=== PATIENT | female | born 1940 | race African-American/Black ===

== ENCOUNTER 2017-04-01 13:03 | Inpatient (IN) | payer MEDICARE, MEDICAID ==
[~2017-04-01] VITALS: Ht 165.1 cm; Wt 73.5 kg
[~2017-04-01 13:03] MED LIST: ACET1TAB14 PO; AMLO10TA80 PO; CALC667C4 PO; DIPH25CA83 PO; METO-300 PO; OMEGA; OMEP20CA10 PO; PRED5DRO7 RIGHTEYE; PRORENAL; SEVE800T8 PO; [UNRECOGNIZED DRUG - OTHER] RIGHTEYE
[2017-04-01] MEDS ORDERED: ONDANSETRON HCL 4MG/2ML VIAL IV STA (13:38)
[2017-04-01] MEDS ORDERED: MORPHINE SULFATE 4 MG/ML CPJ (NOT FOR IM USE) IV STA (13:38)
[2017-04-01 14:03] LABS: BASOPHILS % 0.4 % (0.0-2.0); EOSINOPHILS % 1.2 % (0.0-5.0); HEMATOCRIT. 21.9 % (36.0-48.0); HEMOGLOBIN. 7.3 g/dL (12.0-16.0); LYMPHOCYTES % 26.7 % (20.0-50.0); MEAN CORPUSCULAR HEMOGLOBIN 33.9 pg (28.0-32.0); MEAN CORPUSCULAR VOLUME 101.9 fL (81.0-99.0); MEAN PLATELET VOLUME 9.1 fl (7.4-10.4); MONOCYTES % 13.9 % (2.0-8.0); NEUTROPHILS % 57.8 % (40.0-76.0); PLATELET 156 x1000/uL (130-400); RED BLOOD CELL COUNT 2.15 mill/uL (4.2-5.4); RED CELL DISTRIBUTION WIDTH 15.4 % (11.6-14.6)
[2017-04-01 14:09] LABS: INR 1.1; PROTHROMBIN TIME 11.9 sec
[2017-04-01 14:10] LABS: CARBON DIOXIDE 37 mEq/L (21-32); CHLORIDE 101 mEq/L (98-107)
[2017-04-01] MEDS ORDERED: DIPHENHYDRAMINE 50MG/ML VIAL IV ONE (16:00)
[2017-04-01] MEDS ORDERED: LEVOFLOXACIN 750MG PREMIX 150 ML IV ONE (16:00)
[2017-04-01] MEDS: METOPROLOL TARTRATE 50MG TABLET PO SCH (17:13)
[2017-04-01] MEDS ORDERED: ALBUTEROL (0.083%) 2.5MG/3ML NEB HHN NR (18:30)
[2017-04-01] MEDS ORDERED: CEFEPIME 1,000 MG in DEXTROSE 5% WATER 50 ML IV SCH (18:30)
[2017-04-01] MEDS ORDERED: MAGNESIUM/ALUMINUM HYDROXIDE/SIMETHICONE 30ML UDC PO PRN (19:00)
[2017-04-01] MEDS ORDERED: IPRATROPIUM/ALBUTEROL 0.5-3(2.5)MG/3ML NEB INH PRN (19:00)
[2017-04-01] MEDS ORDERED: DOCUSATE SODIUM 100MG CAPSULE PO PRN (19:00)
[2017-04-01] MEDS ORDERED: GUAIFENESIN 200MG/10ML SUGAR FREE UDC PO PRN (19:00)
[2017-04-01] MEDS ORDERED: ACETAMINOPHEN 325MG TABLET PO PRN (19:00)
[2017-04-01 19:01] LABS: AMYLASE 159 IU/L (25-115)
[2017-04-01] MEDS ORDERED: NA PHOS,M-B/NA PHOS,DI-BA ENEMA 118ML PR PRN (20:00)
[2017-04-01] MEDS ORDERED: AMLODIPINE 5MG TABLET PO SCH (21:00)
[2017-04-01 22:55] LABS: TROPONIN I 0.1 ng/mL (0.00-0.04)
[2017-04-02] VITALS (46 sets, daily range): BP systolic 92–163; BP diastolic 42–88
[2017-04-02] MEDS: HYDROCODONE/ACETAMINOPHEN 5/325MG TABLET PO PRN (01:18)
[2017-04-02] MEDS: ONDANSETRON HCL 4MG/2ML VIAL IV PRN ×2 (03:34→13:23)
[2017-04-02] MEDS ORDERED: WATER IV SCH (04:00)
[2017-04-02] MEDS ORDERED: DEXTROSE 5% IV SCH (04:00)
[2017-04-02] MEDS ORDERED: CEFEPIME IV SCH (04:00)
[2017-04-02] MEDS: METOPROLOL TARTRATE 50MG TABLET PO SCH (08:15)
[2017-04-02] MEDS ORDERED: AMLODIPINE 5MG TABLET PO SCH (09:00)
[2017-04-02] MEDS ORDERED: PANTOPRAZOLE 40MG DR TABLET PO SCH (09:00)
[2017-04-02] MEDS ORDERED: DEXTROSE 50% WATER 50ML SYRINGE IV ONE ×2 (09:38→13:08)
[2017-04-02] MEDS ORDERED: DOPAMINE 400MG PREMIX 250 ML IV PRN (09:45)
[2017-04-02] MEDS ORDERED: SODIUM CHLORIDE 0.9% 250 ML IV NR (09:45)
[2017-04-02] MEDS ORDERED: ATROPINE SULFATE 1MG/10ML SYR IV PRN (09:45)
[2017-04-02] MEDS ORDERED: DOPAMINE IV ONE (09:55)
[2017-04-02 10:02] LABS: BG BASE EXCESS -11.3 mmol/L (-2.0-2.0); BG CARBOXYHEMOGLOBIN 0.3 % (0.5-1.5); BG DEOXYHEMOGLOBIN 1.8 % (0.0-5.0); BG HCO3 ACT 14.6 mmol/L (22.0-26.0); BG METHEMOGLOBIN 0.2 % (0.0-1.5); BG OXYGEN SATURATION 98.2 % (92.0-98.5); BG OXYHEMOGLOBIN 97.7 % (94.0-97.0); BG PCO2 32.8 mmHg (35.0-45.0); BG PH 7.267 (7.350-7.450); BG PO2 145.2 mmHg (75.0-100.0); BG SAMPLE SITE RIGHT BRACHIAL; BG TOTAL HEMOGLOBIN 8.7 g/dL (12.0-18.0); BG VENT MODE NASAL CANNULA
[2017-04-02] MEDS ORDERED: SODIUM BICARBONATE 8.4% 1 MEQ/ML 50ML SYR IV SCH (10:15)
[2017-04-02] MEDS: DEXT 5%/0.45% NACL 1000ML 1,000 ML IV SCH ×2 (10:18→20:28)
[2017-04-02] MEDS ORDERED: PANTOPRAZOLE SODIUM 40 MG/VIAL IV SCH (10:30)
[2017-04-02 10:34] LABS: CARBON DIOXIDE 19 mEq/L (21-32); CHLORIDE 101 mEq/L (98-107)
[2017-04-02 10:35] LABS: CREATINE KINASE MB FRACTION 4.3 ng/mL (0.5-3.6); LDL CHOLESTEROL 30 mg/dL (5-100)
[2017-04-02 10:40] LABS: CREATINE KINASE 151 IU/L (26-192); HDL CHOLESTEROL 53 mg/dL (40-59)
[2017-04-02 11:12] LABS: AMMONIA 91 uMol/L (<32)
[2017-04-02 11:12] LABS: HEMATOCRIT. 25.3 % (36.0-48.0); HEMOGLOBIN. 7.6 g/dL (12.0-16.0); MEAN CORPUSCULAR HEMOGLOBIN 34.4 pg (28.0-32.0); PLATELET 188 x1000/uL (130-400); RED CELL DISTRIBUTION WIDTH 17.2 % (11.6-14.6)
[2017-04-02 11:13] LABS: MEAN CORPUSCULAR VOLUME 114.7 fL (81.0-99.0)
[2017-04-02 11:52] LABS: NUCLEATED RED BLOOD CELLS 4 /100 WBC
[2017-04-02 11:53] LABS: PLATELET ESTIMATE NORMAL
[2017-04-02] MEDS ORDERED: MORPHINE SULFATE 2 MG/ML CPJ (NOT FOR IM USE) ONE (14:52)
[2017-04-02] MEDS: MORPHINE SULFATE 2 MG/ML CPJ (NOT FOR IM USE) IV PRN (14:56)
[2017-04-02] MEDS: PIPERACILLIN/TAZOBACTAM 2.25 G in DEXTROSE 5% WATER 50 ML IV SCH ×2 (15:03→21:05)
[2017-04-02 15:35] LABS: BG BASE EXCESS 5.5 mmol/L (-2.0-2.0); BG CARBOXYHEMOGLOBIN 0.2 % (0.5-1.5); BG DEOXYHEMOGLOBIN 1.7 % (0.0-5.0); BG HCO3 ACT 30.3 mmol/L (22.0-26.0); BG METHEMOGLOBIN 0.2 % (0.0-1.5); BG OXYGEN SATURATION 98.3 % (92.0-98.5); BG OXYHEMOGLOBIN 97.9 % (94.0-97.0); BG PCO2 45.2 mmHg (35.0-45.0); BG PH 7.444 (7.350-7.450); BG PO2 130.1 mmHg (75.0-100.0); BG SAMPLE SITE RIGHT BRACHIAL; BG TOTAL HEMOGLOBIN 11.9 g/dL (12.0-18.0); BG VENT MODE NASAL CANNULA
[2017-04-02 16:07] LABS: HEMATOCRIT 31.4 % (36.0-48.0); HEMOGLOBIN 10.2 g/dL (12.0-16.0)
[2017-04-02] MEDS: HYDROMORPHONE HCL/PF 2MG/ML CPJ IV PRN ×2 (18:21→21:06)
[2017-04-02] MEDS: PANTOPRAZOLE SODIUM 40 MG/VIAL IV SCH (20:28)
[2017-04-02 21:56] LABS: HEMOGLOBIN 11.2 g/dL (12.0-16.0)
[2017-04-03] VITALS (42 sets, daily range): BP systolic 35–157; BP diastolic 17–102
[2017-04-03] MEDS: DEXT 5%/0.45% NACL 1000ML 1,000 ML IV SCH (05:07)
[2017-04-03] MEDS: PIPERACILLIN/TAZOBACTAM 2.25 G in DEXTROSE 5% WATER 50 ML IV SCH ×2 (05:07→22:17)
[2017-04-03 06:02] LABS: BASOPHILS % 0.3 % (0.0-2.0); EOSINOPHILS % 0.5 % (0.0-5.0); HEMATOCRIT. 29.4 % (36.0-48.0); HEMOGLOBIN. 9.9 g/dL (12.0-16.0); LYMPHOCYTES % 18.1 % (20.0-50.0); MEAN CORPUSCULAR HEMOGLOBIN 34.2 pg (28.0-32.0); MEAN PLATELET VOLUME 9.6 fl (7.4-10.4); MONOCYTES % 8.7 % (2.0-8.0); NEUTROPHILS % 72.4 % (40.0-76.0); PLATELET 120 x1000/uL (130-400); RED BLOOD CELL COUNT 2.88 mill/uL (4.2-5.4); RED CELL DISTRIBUTION WIDTH 15.5 % (11.6-14.6)
[2017-04-03] MEDS: HYDROMORPHONE HCL/PF 2MG/ML CPJ IV PRN ×3 (06:19→22:23)
[2017-04-03] MEDS: PANTOPRAZOLE SODIUM 40 MG/VIAL IV SCH ×2 (08:07→21:30)
[2017-04-03] MEDS: ATROPINE SULFATE RIGHTEYE SCH ×2 (10:25→21:31)
[2017-04-03] MEDS ORDERED: MIDAZOLAM HCL 5 MG/5 ML VIAL ONE (10:34)
[2017-04-03] MEDS ORDERED: SIMETHICONE 40 MG/0.6 ML 30ML ONE (10:34)
[2017-04-03] MEDS ORDERED: FENTANYL CITRATE/PF 50MCG/ML 2ML VIAL ONE (10:34)
[2017-04-03] MEDS ORDERED: MIDAZOLAM HCL 2 MG/2 ML VIAL IV PRN (11:38)
[2017-04-03] MEDS ORDERED: FENTANYL CITRATE/PF 50MCG/ML 2ML VIAL IV PRN (11:38)
[2017-04-03] MEDS: PREDNISOLONE ACETATE 0.12% RIGHTEYE SCH ×2 (12:00→17:35)
[2017-04-03] MEDS ORDERED: SODIUM CHLORIDE 0.9% 10ML VIAL ONE (13:48)
[2017-04-03] MEDS: LACTULOSE 20G/30ML UDC PO SCH (17:35)
[2017-04-03 17:51] LABS: HEMOGLOBIN 10.6 g/dL (12.0-16.0)
[2017-04-04] VITALS (28 sets, daily range): BP systolic 100–176; BP diastolic 68–107
[2017-04-04] MEDS: PREDNISOLONE ACETATE 0.12% RIGHTEYE SCH ×2 (00:42→06:00)
[2017-04-04] MEDS: PIPERACILLIN/TAZOBACTAM 2.25 G in DEXTROSE 5% WATER 50 ML IV SCH ×2 (05:33→14:08)
[2017-04-04 06:33] LABS: AMMONIA 51 uMol/L (<32)
[2017-04-04 07:04] LABS: BASOPHILS % 0.4 % (0.0-2.0); EOSINOPHILS % 1.3 % (0.0-5.0); HEMATOCRIT. 29.8 % (36.0-48.0); HEMOGLOBIN. 10.1 g/dL (12.0-16.0); LYMPHOCYTES % 21.8 % (20.0-50.0); MEAN CORPUSCULAR HEMOGLOBIN 34.6 pg (28.0-32.0); MEAN CORPUSCULAR VOLUME 102.5 fL (81.0-99.0); MEAN PLATELET VOLUME 9.5 fl (7.4-10.4); MONOCYTES % 13.1 % (2.0-8.0); NEUTROPHILS % 63.4 % (40.0-76.0); PLATELET 123 x1000/uL (130-400); RED BLOOD CELL COUNT 2.91 mill/uL (4.2-5.4); RED CELL DISTRIBUTION WIDTH 16.1 % (11.6-14.6)
[2017-04-04] MEDS: PANTOPRAZOLE SODIUM 40 MG/VIAL IV SCH ×2 (08:22→21:13)
[2017-04-04] MEDS: HYDROCODONE/ACETAMINOPHEN 5/325MG TABLET PO PRN (08:22)
[2017-04-04] MEDS: LACTULOSE 20G/30ML UDC PO SCH ×2 (08:22→17:14)
[2017-04-04] MEDS: ATROPINE SULFATE RIGHTEYE SCH ×2 (08:28→21:13)
[2017-04-04] MEDS: AMLODIPINE 10MG TABLET PO SCH (12:19)
[2017-04-04] MEDS: HYDROMORPHONE HCL/PF 2MG/ML CPJ IV PRN ×2 (12:20→21:14)
[2017-04-04] MEDS: PREDNISOLONE ACETATE 1% OPHTH DROPS 1ML RIGHTEYE SCH (17:54)
[2017-04-04] MEDS: PIPERACILLIN/TAZ 2.25G PREMIX 50 ML IV SCH (21:14)
[2017-04-05] VITALS (14 sets, daily range): BP systolic 113–181; BP diastolic 68–97
[2017-04-05] MEDS: PREDNISOLONE ACETATE 1% OPHTH DROPS 1ML RIGHTEYE SCH ×5 (00:09→23:20)
[2017-04-05] MEDS: DIPHENHYDRAMINE 50MG/ML VIAL IV PRN (00:10)
[2017-04-05] MEDS: CLONIDINE 0.1MG TABLET PO PRN ×2 (00:10→08:21)
[2017-04-05] MEDS: HYDROCODONE/ACETAMINOPHEN 5/325MG TABLET PO PRN (00:11)
[2017-04-05] MEDS: MORPHINE SULFATE 2 MG/ML CPJ (NOT FOR IM USE) IV PRN ×2 (03:11→23:20)
[2017-04-05] MEDS: LORAZEPAM 2MG/ML CPJ IV PRN ×2 (03:17→23:18)
[2017-04-05 03:26] LABS: BASOPHILS % 0.1 % (0.0-2.0); EOSINOPHILS % 2.3 % (0.0-5.0); HEMATOCRIT. 29.1 % (36.0-48.0); HEMOGLOBIN. 9.7 g/dL (12.0-16.0); MEAN CORPUSCULAR HEMOGLOBIN 34.2 pg (28.0-32.0); MEAN CORPUSCULAR VOLUME 102.2 fL (81.0-99.0); MEAN PLATELET VOLUME 9.3 fl (7.4-10.4); MONOCYTES % 8.3 % (2.0-8.0); NEUTROPHILS % 66.3 % (40.0-76.0); PLATELET 125 x1000/uL (130-400); RED BLOOD CELL COUNT 2.85 mill/uL (4.2-5.4)
[2017-04-05 03:35] LABS: PHOSPHORUS 4.8 mg/dL (2.5-4.9)
[2017-04-05] MEDS: PIPERACILLIN/TAZ 2.25G PREMIX 50 ML IV SCH (05:49)
[2017-04-05] MEDS: PANTOPRAZOLE SODIUM 40 MG/VIAL IV SCH ×2 (08:21→22:08)
[2017-04-05] MEDS: AMLODIPINE 10MG TABLET PO SCH (08:21)
[2017-04-05] MEDS: ATROPINE SULFATE RIGHTEYE SCH ×2 (08:22→22:10)
[2017-04-05] MEDS: LACTULOSE 20G/30ML UDC PO SCH ×2 (08:22→17:17)
[2017-04-05] MEDS: PIPERACILLIN/TAZOBACTAM 2.25 G in DEXTROSE 5% WATER 50 ML IV SCH (17:17)
[2017-04-06] VITALS (12 sets, daily range): BP systolic 100–165; BP diastolic 23–107
[2017-04-06] MEDS: PIPERACILLIN/TAZOBACTAM 2.25 G in DEXTROSE 5% WATER 50 ML IV SCH ×2 (01:31→10:21)
[2017-04-06] MEDS: HYDROCODONE/ACETAMINOPHEN 5/325MG TABLET PO PRN ×2 (03:00→08:29)
[2017-04-06] MEDS: CLONIDINE 0.1MG TABLET PO PRN (03:01)
[2017-04-06] MEDS: DIPHENHYDRAMINE 50MG/ML VIAL IV PRN ×2 (03:14→23:38)
[2017-04-06] MEDS: PREDNISOLONE ACETATE 1% OPHTH DROPS 1ML RIGHTEYE SCH ×4 (06:19→23:33)
[2017-04-06 07:13] LABS: BASOPHILS % 0.4 % (0.0-2.0); EOSINOPHILS % 3.7 % (0.0-5.0); HEMATOCRIT. 28.5 % (36.0-48.0); HEMOGLOBIN. 9.7 g/dL (12.0-16.0); LYMPHOCYTES % 25.5 % (20.0-50.0); MEAN CORPUSCULAR HEMOGLOBIN 34.8 pg (28.0-32.0); MEAN CORPUSCULAR VOLUME 102.6 fL (81.0-99.0); MONOCYTES % 14.1 % (2.0-8.0); NEUTROPHILS % 56.3 % (40.0-76.0); PLATELET 103 x1000/uL (130-400); RED BLOOD CELL COUNT 2.78 mill/uL (4.2-5.4); RED CELL DISTRIBUTION WIDTH 17.4 % (11.6-14.6)
[2017-04-06] MEDS: ATROPINE SULFATE RIGHTEYE SCH ×2 (08:30→21:03)
[2017-04-06] MEDS: LACTULOSE 20G/30ML UDC PO SCH ×2 (08:30→16:40)
[2017-04-06] MEDS: AMLODIPINE 10MG TABLET PO SCH (08:30)
[2017-04-06] MEDS: PANTOPRAZOLE SODIUM 40 MG/VIAL IV SCH ×2 (08:30→21:04)
[2017-04-06 11:21] LABS: AMMONIA 28 uMol/L (<32)
[2017-04-06 11:24] LABS: BG BASE EXCESS 1.5 mmol/L (-2.0-2.0); BG DEOXYHEMOGLOBIN 7.7 % (0.0-5.0); BG FRACTION INSPIRED OXYGEN 21; BG HCO3 ACT 27.1 mmol/L (22.0-26.0); BG METHEMOGLOBIN 0.3 % (0.0-1.5); BG OXYGEN SATURATION 92.2 % (92.0-98.5); BG PCO2 47.1 mmHg (35.0-45.0); BG PH 7.378 (7.350-7.450); BG PO2 68.8 mmHg (75.0-100.0); BG SAMPLE SITE RIGHT RADIAL; BG TOTAL HEMOGLOBIN 10.5 g/dL (12.0-18.0); BG VENT MODE ROOM AIR
[2017-04-06] MEDS: LORAZEPAM 2MG/ML CPJ IV PRN (12:21)
[2017-04-06] MEDS: HYDROCODONE/ACETAMINOPHEN 10/325MG TABLET PO PRN ×2 (12:22→21:03)
[2017-04-07] VITALS (11 sets, daily range): BP systolic 137–160; BP diastolic 59–99
[2017-04-07] MEDS: BUDESONIDE 0.5MG/2ML NEB HHN SCH ×2 (00:19→12:32)
[2017-04-07] MEDS: PREDNISOLONE ACETATE 1% OPHTH DROPS 1ML RIGHTEYE SCH ×4 (05:35→23:16)
[2017-04-07 06:47] LABS: BASOPHILS % 0.4 % (0.0-2.0); EOSINOPHILS % 5.7 % (0.0-5.0); HEMATOCRIT. 29.1 % (36.0-48.0); HEMOGLOBIN. 9.9 g/dL (12.0-16.0); LYMPHOCYTES % 22.3 % (20.0-50.0); MEAN CORPUSCULAR HEMOGLOBIN 34.5 pg (28.0-32.0); MEAN CORPUSCULAR VOLUME 101.9 fL (81.0-99.0); MEAN PLATELET VOLUME 9.8 fl (7.4-10.4); MONOCYTES % 11.5 % (2.0-8.0); NEUTROPHILS % 60.1 % (40.0-76.0); PLATELET 97 x1000/uL (130-400); RED BLOOD CELL COUNT 2.86 mill/uL (4.2-5.4); RED CELL DISTRIBUTION WIDTH 18.3 % (11.6-14.6)
[2017-04-07] MEDS: LACTULOSE 20G/30ML UDC PO SCH ×2 (08:08→17:00)
[2017-04-07] MEDS: AMLODIPINE 10MG TABLET PO SCH (08:16)
[2017-04-07] MEDS: HYDROCODONE/ACETAMINOPHEN 10/325MG TABLET PO PRN ×3 (08:16→22:49)
[2017-04-07] MEDS: PANTOPRAZOLE SODIUM 40 MG/VIAL IV SCH ×2 (08:16→20:11)
[2017-04-07] MEDS: ATROPINE SULFATE RIGHTEYE SCH ×2 (08:17→20:11)
[2017-04-07] MEDS ORDERED: LORAZEPAM 2MG/ML CPJ IV PRN (15:45)
[2017-04-07] MEDS: CLONIDINE 0.1MG TABLET PO PRN (18:02)
[2017-04-08] VITALS (7 sets, daily range): BP systolic 147–176; BP diastolic 69–87
[2017-04-08] MEDS: BUDESONIDE 0.5MG/2ML NEB HHN SCH ×2 (00:29→11:26)
[2017-04-08] MEDS: CLONIDINE 0.1MG TABLET PO PRN (01:03)
[2017-04-08] MEDS: HYDROCODONE/ACETAMINOPHEN 10/325MG TABLET PO PRN ×2 (05:27→13:56)
[2017-04-08] MEDS: PREDNISOLONE ACETATE 1% OPHTH DROPS 1ML RIGHTEYE SCH ×2 (06:01→11:54)
[2017-04-08] MEDS: AMLODIPINE 10MG TABLET PO SCH (08:46)
[2017-04-08] MEDS: ATROPINE SULFATE RIGHTEYE SCH (08:46)
[2017-04-08] MEDS: LACTULOSE 20G/30ML UDC PO SCH (08:46)
[2017-04-08] MEDS: PANTOPRAZOLE SODIUM 40 MG/VIAL IV SCH (08:46)
== END 2017-04-08 15:25 | disposition home health service (06) | DRG 871 ==
LOC: ER 14:12 → 6WST 16:20 → EDBEDREQSVC 16:21 → EDBEDREQTM 16:21 → EDBEDREQ 16:21 → CVICU 04-02 09:38 → 5EST 04-04 23:35 → 6WST 04-08 01:30
PROVIDERS: ADMIT Internal Medicine; ATTEND Internal Medicine
PROC: 5A1D60Z (ICD-10-PCS; 2017-04-02)
PROC: 30233N1 Transfusion of Nonautologous Red Blood Cells into Peripheral Vein, Percutaneous Approach (ICD-10-PCS; 2017-04-02)
PROC: 02HV33Z Insertion of Infusion Device into Superior Vena Cava, Percutaneous Approach (ICD-10-PCS; 2017-04-02)
PROC: B548ZZA Ultrasonography of Superior Vena Cava, Guidance (ICD-10-PCS; 2017-04-02)
PROC: 0DB68ZX Excision of Stomach, Via Natural or Artificial Opening Endoscopic, Diagnostic (ICD-10-PCS; principal; 2017-04-03 11:30)
DX: A41.9 Sepsis, unspecified organism (principal); G93.40 Encephalopathy, unspecified; J69.0 Pneumonitis due to inhalation of food and vomit; N18.6 End stage renal disease; J96.00 Acute respiratory failure, unspecified whether with hypoxia or hypercapnia; K85.90 Acute pancreatitis without necrosis or infection, unspecified; I13.2 Hypertensive heart and chronic kidney disease with heart failure and with stage 5 chronic kidney disease, or end stage renal disease; N17.9 Acute kidney failure, unspecified; R18.8 Other ascites; K92.2 Gastrointestinal hemorrhage, unspecified; I50.9 Heart failure, unspecified; B19.20 Unspecified viral hepatitis C without hepatic coma; D50.0 Iron deficiency anemia secondary to blood loss (chronic); E16.2 Hypoglycemia, unspecified; E78.5 Hyperlipidemia, unspecified; E87.5 Hyperkalemia; I25.10 Atherosclerotic heart disease of native coronary artery without angina pectoris; K20.9 Esophagitis, unspecified; K29.00 Acute gastritis without bleeding; K29.80 Duodenitis without bleeding; K44.9 Diaphragmatic hernia without obstruction or gangrene; K74.60 Unspecified cirrhosis of liver; Z79.899 Other long term (current) drug therapy; Z99.2 Dependence on renal dialysis; Z82.49 Family history of ischemic heart disease and other diseases of the circulatory system; Z86.73 Personal history of transient ischemic attack (TIA), and cerebral infarction without residual deficits; K80.20 Calculus of gallbladder without cholecystitis without obstruction
CPT/HCPCS: 36415; 36430; 36569; 36600; 71010; 74176; 76700; 76937; 80048; 80051; 80053; 80061; 80076; 82140; 82150; 82270; 82375; 82550; 82553; 82805; 82962; 83540; 83550; 83605; 83690; 83735; 84100; 84443; 84484; 85007; 85014; 85018; 85025; 85027; 85379; 85610; 86677; 86850; 86900; 86920; 87040; 88305; 93005; 93306; 93970; 94640; 96365; 96366; 96375; 97116; 97163; 97166; 97530; 99285; A4216; A6261; C1725; C9113; J0461; J0692; J1170; J1200; J1265; J1956; J2060; J2250; J2270; J2405; J2543; J3010; J3490; J7030; J7050; J7060; J7620; J7626; P9016

== ENCOUNTER 2017-05-06 14:08 | Inpatient (IN) | payer MEDICARE, MEDICAID ==
[~2017-05-06] VITALS: Ht 162.6 cm; Wt 68.0 kg
[~2017-05-06 14:08] MED LIST changes: -METO-300 PO
[2017-05-06] MEDS ORDERED: ONDANSETRON HCL 4MG/2ML VIAL IV STA (16:18)
[2017-05-06] MEDS ORDERED: MORPHINE SULFATE 4 MG/ML CPJ (NOT FOR IM USE) IV STA (16:18)
[2017-05-06] MEDS ORDERED: NITROGLYCERIN OINT 1GM/INCH UDPKT TD ONE (16:30)
[2017-05-06 17:24] LABS: HEMATOCRIT. 40.1 % (36.0-48.0); HEMOGLOBIN. 12.7 g/dL (12.0-16.0); MEAN CORPUSCULAR HEMOGLOBIN 33.4 pg (28.0-32.0); MEAN CORPUSCULAR VOLUME 105.4 fL (81.0-99.0); MEAN PLATELET VOLUME 10.1 fl (7.4-10.4); PLATELET 100 x1000/uL (130-400); RED CELL DISTRIBUTION WIDTH 19.1 % (11.6-14.6)
[2017-05-06 17:35] LABS: INR 1.1; PROTHROMBIN TIME 11.5 sec (9.4-11.6)
[2017-05-06 17:38] LABS: CARBON DIOXIDE 34 mEq/L (21-32); CHLORIDE 107 mEq/L (98-107)
[2017-05-06 17:53] LABS: PLATELET ESTIMATE DECREASED
[2017-05-06] MEDS ORDERED: ASPIRIN 325MG TABLET PO ONE (18:00)
[2017-05-06] MEDS ORDERED: ENOXAPARIN 80MG/0.8ML SYR SUBCUT ONE (18:00)
[2017-05-06] MEDS ORDERED: CLONIDINE 0.1MG TABLET PO PRN (18:30)
[2017-05-06] MEDS ORDERED: ACETAMINOPHEN 325MG TABLET PO PRN (20:00)
[2017-05-06] MEDS ORDERED: DOCUSATE SODIUM 100MG CAPSULE PO PRN (20:00)
[2017-05-06] MEDS ORDERED: IPRATROPIUM/ALBUTEROL 0.5-3(2.5)MG/3ML NEB INH PRN (20:00)
[2017-05-06 20:05] VITALS: BP 175/98
[2017-05-06 22:00] VITALS: BP 143/75
[2017-05-06] MEDS: MAGNESIUM/ALUMINUM HYDROXIDE/SIMETHICONE 30ML UDC PO PRN (22:03)
[2017-05-06] MEDS: LOSARTAN POTASSIUM 25 MG TABLET PO SCH (22:03)
[2017-05-06] MEDS: HYDRALAZINE HCL 50MG TABLET PO SCH (22:04)
[2017-05-06] MEDS: HYDROCODONE/ACETAMINOPHEN 5/325MG TABLET PO PRN (22:05)
[2017-05-06] MEDS: AMLODIPINE 5MG TABLET PO SCH (22:05)
[2017-05-06] MEDS: METOPROLOL TARTRATE 25MG TABLET PO SCH (22:06)
[2017-05-07] VITALS (12 sets, daily range): BP systolic 125–170; BP diastolic 62–91
[2017-05-07 00:31] LABS: CREATINE KINASE MB FRACTION 7.1 ng/mL (0.5-3.6)
[2017-05-07 00:41] LABS: TROPONIN I 3.1 ng/mL (0.00-0.04)
[2017-05-07] MEDS: HYDROCODONE/ACETAMINOPHEN 5/325MG TABLET PO PRN ×4 (04:53→23:53)
[2017-05-07 06:25] LABS: HEMATOCRIT. 37.1 % (36.0-48.0); HEMOGLOBIN. 11.8 g/dL (12.0-16.0); MEAN CORPUSCULAR HEMOGLOBIN 33.9 pg (28.0-32.0); MEAN CORPUSCULAR VOLUME 106.5 fL (81.0-99.0); MEAN PLATELET VOLUME 9.6 fl (7.4-10.4); PLATELET 86 x1000/uL (130-400); RED BLOOD CELL COUNT 3.48 mill/uL (4.2-5.4); RED CELL DISTRIBUTION WIDTH 19.3 % (11.6-14.6)
[2017-05-07] MEDS: OMEPRAZOLE 20MG CAPSULE EXTENDED RELEASE PO SCH (06:42)
[2017-05-07 07:03] LABS: CREATINE KINASE MB FRACTION 6.3 ng/mL (0.5-3.6)
[2017-05-07 07:50] LABS: TROPONIN I 2.2 ng/mL (0.00-0.04)
[2017-05-07] MEDS: SEVELAMER CARBONATE 800 MG TABLET PO SCH ×3 (08:07→16:00)
[2017-05-07] MEDS: HYDRALAZINE HCL 50MG TABLET PO SCH ×2 (08:07→21:27)
[2017-05-07] MEDS: CALCIUM ACETATE 667MG CAPSULE PO SCH ×3 (08:07→16:00)
[2017-05-07] MEDS: AMLODIPINE 5MG TABLET PO SCH ×2 (08:08→21:00)
[2017-05-07] MEDS: METOPROLOL TARTRATE 25MG TABLET PO SCH (08:08)
[2017-05-07] MEDS: LOSARTAN POTASSIUM 25 MG TABLET PO SCH ×2 (08:08→21:00)
[2017-05-07] MEDS: ATROPINE SULFATE 1% OPHTH 2ML RIGHTEYE SCH ×2 (08:14→16:00)
[2017-05-07] MEDS: PREDNISOLONE ACETATE 1% OPHTH DROPS 1ML RIGHTEYE SCH ×4 (08:14→21:27)
[2017-05-07] MEDS ORDERED: DIPHENHYDRAMINE 25MG CAPSULE PO SCH (09:00)
[2017-05-07] MEDS ORDERED: SEVELAMER CARBONATE 800 MG TABLET PO SCH (09:00)
[2017-05-07] MEDS ORDERED: [UNRECOGNIZED DRUG - OTHER] RIGHTEYE SCH (09:00)
[2017-05-07] MEDS: FOLIC ACID/VITAMIN B COMP W-C TABLET PO SCH (12:06)
[2017-05-07 12:14] LABS: CLARITY URINE CLOUDY (CLEAR); COLOR URINE DARK YELLOW (YELLOW); GLUCOSE URINE NEGATIVE (NEGATIVE); KETONES URINE TRACE (NEGATIVE); LEUKOCYTE ESTERASE URINE TRACE (NEGATIVE); NITRITE URINE NEGATIVE (NEGATIVE); OCCULT BLOOD URINE TRACE (NEGATIVE); PH URINE 7.5 (4.5-8.0); PROTEIN URINE 4+ (NEGATIVE); SPECIFIC GRAVITY URINE 1.022 (1.005-1.030)
[2017-05-07 13:33] LABS: *AMPHETAMINES SCREEN URINE NEGATIVE (NEGATIVE); *BARBITURATES SCREEN URINE NEGATIVE (NEGATIVE); *BENZODIAZEPINES SCREEN URINE PRESUMTIVE POSITIVE (NEGATIVE); *COCAINE SCREEN URINE NEGATIVE (NEGATIVE); CANNABINOID URINE SCREEN NEGATIVE (NEGATIVE); METHADONE URINE SCREEN NEGATIVE (NEGATIVE); OPIATES URINE SCREEN PRESUMTIVE POSITIVE (NEGATIVE); PHENCYCLIDINE URINE SCREEN NEGATIVE (NEGATIVE)
[2017-05-07] MEDS: DIATR MEGLU/DIATRIZOATE SOLN 30ML PO SCH ×2 (15:57→17:11)
[2017-05-07 17:04] LABS: PLATELET ESTIMATE DECREASED
[2017-05-07] MEDS ORDERED: HEPARIN SODIUM 1,000 UNIT/1ML VIAL IV NR (21:15)
[2017-05-07] MEDS: CLONIDINE 0.1MG TABLET PO PRN (23:55)
[2017-05-08] VITALS (12 sets, daily range): BP systolic 98–165; BP diastolic 51–88
[2017-05-08 06:52] LABS: BASOPHILS % 0.4 % (0.0-2.0); EOSINOPHILS % 2.3 % (0.0-5.0); HEMATOCRIT. 37.4 % (36.0-48.0); HEMOGLOBIN. 11.9 g/dL (12.0-16.0); MEAN CORPUSCULAR HEMOGLOBIN 33.5 pg (28.0-32.0); MEAN CORPUSCULAR VOLUME 105.3 fL (81.0-99.0); MEAN PLATELET VOLUME 9.7 fl (7.4-10.4); MONOCYTES % 13.5 % (2.0-8.0); NEUTROPHILS % 48.8 % (40.0-76.0); PLATELET 89 x1000/uL (130-400); RED BLOOD CELL COUNT 3.55 mill/uL (4.2-5.4); RED CELL DISTRIBUTION WIDTH 18.7 % (11.6-14.6)
[2017-05-08] MEDS: OMEPRAZOLE 20MG CAPSULE EXTENDED RELEASE PO SCH (06:59)
[2017-05-08] MEDS: SEVELAMER CARBONATE 800 MG TABLET PO SCH ×3 (06:59→17:11)
[2017-05-08] MEDS: PREDNISOLONE ACETATE 1% OPHTH DROPS 1ML RIGHTEYE SCH ×4 (08:43→21:07)
[2017-05-08] MEDS: CALCIUM ACETATE 667MG CAPSULE PO SCH ×3 (08:44→17:11)
[2017-05-08] MEDS: ATROPINE SULFATE 1% OPHTH 2ML RIGHTEYE SCH ×2 (08:44→17:13)
[2017-05-08] MEDS: HYDRALAZINE HCL 50MG TABLET PO SCH ×2 (08:44→21:07)
[2017-05-08] MEDS: AMLODIPINE 5MG TABLET PO SCH ×2 (08:45→21:07)
[2017-05-08] MEDS: FOLIC ACID/VITAMIN B COMP W-C TABLET PO SCH (08:46)
[2017-05-08] MEDS: LOSARTAN POTASSIUM 25 MG TABLET PO SCH ×2 (08:46→21:07)
[2017-05-08] MEDS: HYDROCODONE/ACETAMINOPHEN 5/325MG TABLET PO PRN (10:48)
[2017-05-08] MEDS: LACTOBACILLUS GG CAPSULE PO SCH (12:48)
[2017-05-08] MEDS: METRONIDAZOLE 250MG TABLET PO SCH ×2 (13:03→21:07)
[2017-05-08] MEDS: ACETAMINOPHEN WITH CODEINE 300/60MG TABLET PO PRN ×2 (17:12→23:29)
[2017-05-09] VITALS (12 sets, daily range): BP systolic 106–164; BP diastolic 28–105
[2017-05-09] MEDS: CLONIDINE 0.1MG TABLET PO PRN (00:07)
[2017-05-09] MEDS: IPRATROPIUM/ALBUTEROL 0.5-3(2.5)MG/3ML NEB HHN SCH ×3 (02:30→14:42)
[2017-05-09] MEDS: MAGNESIUM/ALUMINUM HYDROXIDE/SIMETHICONE 30ML UDC PO PRN (05:55)
[2017-05-09] MEDS: SEVELAMER CARBONATE 800 MG TABLET PO SCH ×3 (05:55→16:50)
[2017-05-09] MEDS: METRONIDAZOLE 250MG TABLET PO SCH ×3 (05:55→21:30)
[2017-05-09] MEDS: ONDANSETRON HCL 4MG/2ML VIAL IV PRN (06:02)
[2017-05-09] MEDS: ATROPINE SULFATE 1% OPHTH 2ML RIGHTEYE SCH ×2 (08:50→18:41)
[2017-05-09] MEDS: FAMOTIDINE 20MG TABLET PO SCH (08:50)
[2017-05-09] MEDS: CALCIUM ACETATE 667MG CAPSULE PO SCH ×3 (08:50→17:00)
[2017-05-09] MEDS: LACTOBACILLUS GG CAPSULE PO SCH (08:50)
[2017-05-09] MEDS: FOLIC ACID/VITAMIN B COMP W-C TABLET PO SCH (08:50)
[2017-05-09] MEDS: PREDNISOLONE ACETATE 1% OPHTH DROPS 1ML RIGHTEYE SCH ×4 (08:50→21:31)
[2017-05-09] MEDS: HYDRALAZINE HCL 50MG TABLET PO SCH ×2 (08:51→21:30)
[2017-05-09] MEDS: ACETAMINOPHEN WITH CODEINE 300/60MG TABLET PO PRN ×3 (08:52→21:37)
[2017-05-09] MEDS: LOSARTAN POTASSIUM 25 MG TABLET PO SCH ×2 (08:53→21:30)
[2017-05-09] MEDS: AMLODIPINE 5MG TABLET PO SCH ×2 (08:53→21:30)
[2017-05-10] VITALS (17 sets, daily range): BP systolic 124–164; BP diastolic 58–91
[2017-05-10] MEDS: IPRATROPIUM/ALBUTEROL 0.5-3(2.5)MG/3ML NEB HHN SCH ×4 (02:03→20:59)
[2017-05-10] MEDS: SEVELAMER CARBONATE 800 MG TABLET PO SCH ×3 (06:34→16:53)
[2017-05-10] MEDS: METRONIDAZOLE 250MG TABLET PO SCH ×4 (06:34→23:41)
[2017-05-10 07:48] LABS: HEMOGLOBIN. 11.6 g/dL (12.0-16.0); MEAN CORPUSCULAR HEMOGLOBIN 33.6 pg (28.0-32.0); MEAN PLATELET VOLUME 10.5 fl (7.4-10.4); PLATELET 97 x1000/uL (130-400); RED BLOOD CELL COUNT 3.46 mill/uL (4.2-5.4); RED CELL DISTRIBUTION WIDTH 18.8 % (11.6-14.6)
[2017-05-10] MEDS: ATROPINE SULFATE 1% OPHTH 2ML RIGHTEYE SCH ×2 (08:18→16:53)
[2017-05-10] MEDS: PREDNISOLONE ACETATE 1% OPHTH DROPS 1ML RIGHTEYE SCH ×4 (08:18→21:14)
[2017-05-10] MEDS: CALCIUM ACETATE 667MG CAPSULE PO SCH ×3 (08:19→16:53)
[2017-05-10] MEDS: AMLODIPINE 5MG TABLET PO SCH ×2 (08:20→21:10)
[2017-05-10] MEDS: LACTOBACILLUS GG CAPSULE PO SCH (08:20)
[2017-05-10] MEDS: FAMOTIDINE 20MG TABLET PO SCH (08:20)
[2017-05-10] MEDS: FOLIC ACID/VITAMIN B COMP W-C TABLET PO SCH (08:20)
[2017-05-10] MEDS: HYDRALAZINE HCL 50MG TABLET PO SCH ×2 (08:21→21:10)
[2017-05-10] MEDS: LOSARTAN POTASSIUM 25 MG TABLET PO SCH ×2 (08:21→21:10)
[2017-05-10] MEDS: ACETAMINOPHEN WITH CODEINE 300/60MG TABLET PO PRN ×2 (08:26→20:01)
[2017-05-10] MEDS: MAGNESIUM/ALUMINUM HYDROXIDE/SIMETHICONE 30ML UDC PO PRN (08:59)
[2017-05-10] MEDS: ONDANSETRON HCL 4MG/2ML VIAL IV PRN ×2 (08:59→17:00)
[2017-05-10] MEDS: DICYCLOMINE HCL 10MG CAPSULE PO PRN ×2 (10:23→17:00)
[2017-05-10] MEDS ORDERED: PANTOPRAZOLE SODIUM 40 MG/VIAL IV SCH (14:15)
[2017-05-10 21:06] LABS: ATYPICAL LYMPHOCYTES 1; PLATELET ESTIMATE DECREASED
[2017-05-10] MEDS: DIPHENHYDRAMINE 25MG CAPSULE PO PRN (21:41)
[2017-05-10] MEDS: ZOLPIDEM TARTRATE 5MG TABLET PO PRN (23:41)
[2017-05-11] VITALS (14 sets, daily range): BP systolic 96–157; BP diastolic 40–117
[2017-05-11] MEDS: METRONIDAZOLE 250MG TABLET PO SCH ×4 (05:57→23:01)
[2017-05-11] MEDS: SEVELAMER CARBONATE 800 MG TABLET PO SCH ×3 (06:45→17:37)
[2017-05-11] MEDS: PREDNISOLONE ACETATE 1% OPHTH DROPS 1ML RIGHTEYE SCH ×4 (08:02→21:05)
[2017-05-11] MEDS: ATROPINE SULFATE 1% OPHTH 2ML RIGHTEYE SCH ×2 (08:02→17:35)
[2017-05-11 08:03] LABS: BASOPHILS % 0.5 % (0.0-2.0); EOSINOPHILS % 0.8 % (0.0-5.0); HEMATOCRIT. 41.8 % (36.0-48.0); HEMOGLOBIN. 13.2 g/dL (12.0-16.0); LYMPHOCYTES % 27.6 % (20.0-50.0); MEAN CORPUSCULAR HEMOGLOBIN 33.9 pg (28.0-32.0); MEAN CORPUSCULAR VOLUME 106.9 fL (81.0-99.0); MEAN PLATELET VOLUME 10.3 fl (7.4-10.4); MONOCYTES % 13.7 % (2.0-8.0); NEUTROPHILS % 57.4 % (40.0-76.0); PLATELET 131 x1000/uL (130-400); RED BLOOD CELL COUNT 3.91 mill/uL (4.2-5.4); RED CELL DISTRIBUTION WIDTH 18.8 % (11.6-14.6)
[2017-05-11] MEDS: LACTOBACILLUS GG CAPSULE PO SCH (08:03)
[2017-05-11] MEDS: FAMOTIDINE 20MG TABLET PO SCH (08:03)
[2017-05-11] MEDS: CALCIUM ACETATE 667MG CAPSULE PO SCH ×3 (08:03→17:38)
[2017-05-11] MEDS: FOLIC ACID/VITAMIN B COMP W-C TABLET PO SCH (08:03)
[2017-05-11] MEDS: ACETAMINOPHEN WITH CODEINE 300/60MG TABLET PO PRN ×2 (08:04→15:18)
[2017-05-11 08:25] LABS: PHOSPHORUS 3.2 mg/dL (2.5-4.9)
[2017-05-11] MEDS: AMLODIPINE 5MG TABLET PO SCH ×2 (09:00→21:05)
[2017-05-11] MEDS: LOSARTAN POTASSIUM 25 MG TABLET PO SCH ×2 (09:00→21:05)
[2017-05-11] MEDS: HYDRALAZINE HCL 50MG TABLET PO SCH ×2 (09:00→21:05)
[2017-05-11] MEDS: IPRATROPIUM/ALBUTEROL 0.5-3(2.5)MG/3ML NEB HHN SCH ×4 (09:47→20:55)
[2017-05-11] MEDS: DIPHENHYDRAMINE 25MG CAPSULE PO PRN ×2 (11:02→17:51)
[2017-05-11] MEDS: DICYCLOMINE HCL 10MG CAPSULE PO PRN (14:07)
[2017-05-11] MEDS: ZOLPIDEM TARTRATE 5MG TABLET PO PRN (23:01)
[2017-05-12] VITALS (12 sets, daily range): BP systolic 112–178; BP diastolic 60–92
[2017-05-12] MEDS: IPRATROPIUM/ALBUTEROL 0.5-3(2.5)MG/3ML NEB HHN SCH ×4 (01:55→20:00)
[2017-05-12] MEDS: METRONIDAZOLE 250MG TABLET PO SCH ×3 (05:42→18:17)
[2017-05-12] MEDS: SEVELAMER CARBONATE 800 MG TABLET PO SCH ×3 (05:42→18:17)
[2017-05-12 07:34] LABS: BASOPHILS % 0.5 % (0.0-2.0); HEMATOCRIT. 36.5 % (36.0-48.0); HEMOGLOBIN. 11.7 g/dL (12.0-16.0); LYMPHOCYTES % 22.4 % (20.0-50.0); MEAN CORPUSCULAR HEMOGLOBIN 33.5 pg (28.0-32.0); MEAN CORPUSCULAR VOLUME 104.9 fL (81.0-99.0); MEAN PLATELET VOLUME 10.4 fl (7.4-10.4); NEUTROPHILS % 64.1 % (40.0-76.0); PLATELET 99 x1000/uL (130-400); RED BLOOD CELL COUNT 3.48 mill/uL (4.2-5.4)
[2017-05-12] MEDS: CALCIUM ACETATE 667MG CAPSULE PO SCH ×3 (08:02→18:17)
[2017-05-12] MEDS: FOLIC ACID/VITAMIN B COMP W-C TABLET PO SCH (08:02)
[2017-05-12] MEDS: HYDRALAZINE HCL 50MG TABLET PO SCH ×2 (08:02→20:16)
[2017-05-12] MEDS: FAMOTIDINE 20MG TABLET PO SCH (08:02)
[2017-05-12] MEDS: LACTOBACILLUS GG CAPSULE PO SCH (08:02)
[2017-05-12] MEDS: LOSARTAN POTASSIUM 25 MG TABLET PO SCH ×2 (08:02→21:16)
[2017-05-12] MEDS: AMLODIPINE 5MG TABLET PO SCH ×2 (08:02→21:16)
[2017-05-12] MEDS: ATROPINE SULFATE 1% OPHTH 2ML RIGHTEYE SCH ×2 (08:07→18:17)
[2017-05-12] MEDS: PREDNISOLONE ACETATE 1% OPHTH DROPS 1ML RIGHTEYE SCH ×4 (08:07→20:18)
[2017-05-12] MEDS: ACETAMINOPHEN WITH CODEINE 300/60MG TABLET PO PRN ×2 (12:52→20:17)
[2017-05-12] MEDS: MORPHINE SULFATE 2 MG/ML CPJ (NOT FOR IM USE) IV PRN (14:10)
[2017-05-13] VITALS (14 sets, daily range): BP systolic 117–167; BP diastolic 30–87
[2017-05-13] MEDS: METRONIDAZOLE 250MG TABLET PO SCH ×4 (00:34→17:44)
[2017-05-13] MEDS: IPRATROPIUM/ALBUTEROL 0.5-3(2.5)MG/3ML NEB HHN SCH ×3 (01:22→20:35)
[2017-05-13] MEDS: SEVELAMER CARBONATE 800 MG TABLET PO SCH ×3 (06:36→17:40)
[2017-05-13 07:19] LABS: BASOPHILS % 0.4 % (0.0-2.0); HEMATOCRIT. 34.9 % (36.0-48.0); HEMOGLOBIN. 11.3 g/dL (12.0-16.0); MEAN CORPUSCULAR HEMOGLOBIN 33.7 pg (28.0-32.0); MEAN CORPUSCULAR VOLUME 104.4 fL (81.0-99.0); MEAN PLATELET VOLUME 10.1 fl (7.4-10.4); MONOCYTES % 12.1 % (2.0-8.0); NEUTROPHILS % 63.5 % (40.0-76.0); PLATELET 102 x1000/uL (130-400); RED BLOOD CELL COUNT 3.34 mill/uL (4.2-5.4); RED CELL DISTRIBUTION WIDTH 17.7 % (11.6-14.6)
[2017-05-13] MEDS: HYDRALAZINE HCL 50MG TABLET PO SCH ×2 (09:00→21:22)
[2017-05-13] MEDS: AMLODIPINE 5MG TABLET PO SCH ×2 (09:00→21:22)
[2017-05-13] MEDS: LOSARTAN POTASSIUM 25 MG TABLET PO SCH ×2 (09:00→21:22)
[2017-05-13] MEDS: LACTOBACILLUS GG CAPSULE PO SCH (09:12)
[2017-05-13] MEDS: CALCIUM ACETATE 667MG CAPSULE PO SCH ×3 (09:12→17:41)
[2017-05-13] MEDS: FOLIC ACID/VITAMIN B COMP W-C TABLET PO SCH (09:12)
[2017-05-13] MEDS: ATROPINE SULFATE 1% OPHTH 2ML RIGHTEYE SCH ×2 (09:12→17:41)
[2017-05-13] MEDS: FAMOTIDINE 20MG TABLET PO SCH (09:12)
[2017-05-13] MEDS: PREDNISOLONE ACETATE 1% OPHTH DROPS 1ML RIGHTEYE SCH ×4 (09:12→21:22)
[2017-05-13] MEDS: MORPHINE SULFATE 2 MG/ML CPJ (NOT FOR IM USE) IV PRN (15:04)
[2017-05-14] VITALS (8 sets, daily range): BP systolic 117–165; BP diastolic 55–78
[2017-05-14] MEDS: METRONIDAZOLE 250MG TABLET PO SCH ×3 (00:29→11:59)
[2017-05-14] MEDS: IPRATROPIUM/ALBUTEROL 0.5-3(2.5)MG/3ML NEB HHN SCH (01:29)
[2017-05-14] MEDS: SEVELAMER CARBONATE 800 MG TABLET PO SCH ×2 (06:48→11:50)
[2017-05-14] MEDS: LACTOBACILLUS GG CAPSULE PO SCH (08:25)
[2017-05-14] MEDS: ATROPINE SULFATE 1% OPHTH 2ML RIGHTEYE SCH (08:25)
[2017-05-14] MEDS: PREDNISOLONE ACETATE 1% OPHTH DROPS 1ML RIGHTEYE SCH (08:25)
[2017-05-14] MEDS: CALCIUM ACETATE 667MG CAPSULE PO SCH (08:26)
[2017-05-14] MEDS: FAMOTIDINE 20MG TABLET PO SCH (08:26)
[2017-05-14] MEDS: HYDRALAZINE HCL 50MG TABLET PO SCH (08:26)
[2017-05-14] MEDS: LOSARTAN POTASSIUM 25 MG TABLET PO SCH (08:26)
[2017-05-14] MEDS: FOLIC ACID/VITAMIN B COMP W-C TABLET PO SCH (08:26)
[2017-05-14] MEDS: AMLODIPINE 5MG TABLET PO SCH (08:26)
[2017-05-14] MEDS ORDERED: DICY10CA59 PO (08:32)
[2017-05-14] MEDS ORDERED: NEPVIT PO (08:32)
[2017-05-14] MEDS ORDERED: LOSA25TA3 PO (08:32)
[2017-05-14] MEDS ORDERED: LACTOBACILLUS RHAMNOSUS GG PO (08:32)
[2017-05-14] MEDS ORDERED: FAMO20TA8 PO (08:32)
[2017-05-14] MEDS ORDERED: HYDR-4135 PO (08:32)
[2017-05-14] MEDS ORDERED: CALC667C PO (08:32)
[2017-05-14] MEDS ORDERED: METR250T PO (08:32)
[2017-05-14] MEDS ORDERED: AMLO5TAB88 PO (08:32)
[2017-05-14] MEDS ORDERED: SEVE800T8 PO (08:32)
[2017-05-14 10:21] LABS: HEMATOCRIT 37.9 % (36.0-48.0); HEMOGLOBIN 12.2 g/dL (12.0-16.0); MEAN CORPUSCULAR HEMOGLOBIN 33.7 pg (28.0-32.0); MEAN CORPUSCULAR VOLUME 104.4 fL (81.0-99.0); PLATELET 114 x1000/uL (130-400); RED BLOOD CELL COUNT 3.63 mill/uL (4.2-5.4); RED CELL DISTRIBUTION WIDTH 17.9 % (11.6-14.6)
[2017-05-14 10:49] LABS: CARBON DIOXIDE 28 mEq/L (21-32); CHLORIDE 100 mEq/L (98-107)
== END 2017-05-14 12:40 | disposition home or self-care (01) | DRG 871 ==
LOC: ER 16:19 → EDBEDREQSVC 17:57 → EDBEDREQ 17:57 → EDBEDREQTM 17:57 → 3WST 17:57 → EDBEDREQ 18:22 → ENRESERV 18:46 → 3WST 05-11 17:05
PROVIDERS: ADMIT Internal Medicine; ATTEND Internal Medicine
PROC: 5A1D60Z (ICD-10-PCS; principal; 2017-05-07)
DX: A41.9 Sepsis, unspecified organism (principal); I21.4 Non-ST elevation (NSTEMI) myocardial infarction; J96.00 Acute respiratory failure, unspecified whether with hypoxia or hypercapnia; I13.2 Hypertensive heart and chronic kidney disease with heart failure and with stage 5 chronic kidney disease, or end stage renal disease; J84.9 Interstitial pulmonary disease, unspecified; D61.818 Other pancytopenia; A04.7 Enterocolitis due to Clostridium difficile; N18.6 End stage renal disease; I27.2 Other secondary pulmonary hypertension; I50.9 Heart failure, unspecified; H40.9 Unspecified glaucoma; B19.20 Unspecified viral hepatitis C without hepatic coma; E87.5 Hyperkalemia; I08.0 Rheumatic disorders of both mitral and aortic valves; I25.10 Atherosclerotic heart disease of native coronary artery without angina pectoris; J44.9 Chronic obstructive pulmonary disease, unspecified; K21.0 Gastro-esophageal reflux disease with esophagitis; K29.70 Gastritis, unspecified, without bleeding; K74.60 Unspecified cirrhosis of liver; K80.20 Calculus of gallbladder without cholecystitis without obstruction; Z79.899 Other long term (current) drug therapy; Z99.2 Dependence on renal dialysis; Z87.891 Personal history of nicotine dependence; Z82.49 Family history of ischemic heart disease and other diseases of the circulatory system; Z87.11 Personal history of peptic ulcer disease
CPT/HCPCS: 36415; 71010; 74000; 78580; 80048; 80053; 80061; 80305; 81001; 82270; 82550; 82553; 83605; 83690; 83735; 84100; 84443; 84484; 85025; 85027; 85610; 86803; 87015; 87040; 87045; 87427; 87449; 87493; 87536; 87902; 89055; 93005; 93306; 94640; 96372; 96374; 96375; 99291; J1644; J1650; J2270; J2405; J7030; J7040; J7620; Q0163; Q9963

== ENCOUNTER 2017-05-21 16:45 | Inpatient (IN) | payer MEDICARE, MEDICAID ==
[~2017-05-21] VITALS: Ht 162.6 cm; Wt 68.9 kg
[~2017-05-21 16:45] MED LIST changes: -AMLO10TA80 PO; +AMLO5TAB88 PO; +CALC667C PO; -CALC667C4 PO; +DICY10CA59 PO; +FAMO20TA8 PO; +HYDR-4135 PO; +LACTOBACILLUS RHAMNOSUS GG PO; +LOSA25TA3 PO; +METR250T PO; +NEPVIT PO; -OMEGA; -PRORENAL
[2017-05-21] MEDS ORDERED: MORPHINE SULFATE 4 MG/ML CPJ (NOT FOR IM USE) IV STA (17:19)
[2017-05-21] MEDS ORDERED: ONDANSETRON HCL 4MG/2ML VIAL IV STA (17:19)
[2017-05-21] MEDS ORDERED: PANTOPRAZOLE SODIUM 40 MG/VIAL IV STA (17:19)
[2017-05-21 18:37] LABS: CHLORIDE 108 mEq/L (98-107)
[2017-05-21 18:39] LABS: HEMATOCRIT. 33.5 % (36.0-48.0); HEMOGLOBIN. 10.9 g/dL (12.0-16.0); INR 1.1; MEAN CORPUSCULAR HEMOGLOBIN 33.6 pg (28.0-32.0); MEAN CORPUSCULAR VOLUME 103.7 fL (81.0-99.0); MEAN PLATELET VOLUME 9.6 fl (7.4-10.4); PLATELET 133 x1000/uL (130-400); PROTHROMBIN TIME 11.7 sec (9.4-11.6); RED BLOOD CELL COUNT 3.23 mill/uL (4.2-5.4); RED CELL DISTRIBUTION WIDTH 16.5 % (11.6-14.6)
[2017-05-21 18:46] LABS: CARBON DIOXIDE 29 mEq/L (21-32)
[2017-05-21 19:15] LABS: PLATELET ESTIMATE NORMAL
[2017-05-21 22:40] VITALS: BP 157/83
[2017-05-22] MEDS ORDERED: DICYCLOMINE HCL 10MG CAPSULE PO PRN (00:15)
[2017-05-22] MEDS ORDERED: ACETAMINOPHEN 650MG/20.3ML UDC PO PRN (00:45)
[2017-05-22] MEDS: HYDROCODONE/ACETAMINOPHEN 5/325MG TABLET PO PRN ×2 (01:28→10:14)
[2017-05-22] MEDS: METRONIDAZOLE 250MG TABLET PO SCH ×3 (06:23→18:02)
[2017-05-22 08:00] VITALS: BP 163/84
[2017-05-22] MEDS ORDERED: [UNRECOGNIZED DRUG - OTHER] RIGHTEYE SCH (09:00)
[2017-05-22] MEDS ORDERED: LACTOBACILLUS RHAMNOSUS GG PO SCH (09:00)
[2017-05-22 09:31] LABS: BASOPHILS % 0.5 % (0.0-2.0); EOSINOPHILS % 1.9 % (0.0-5.0); HEMATOCRIT. 33.6 % (36.0-48.0); HEMOGLOBIN. 10.8 g/dL (12.0-16.0); LYMPHOCYTES % 35.6 % (20.0-50.0); MEAN CORPUSCULAR HEMOGLOBIN 33.8 pg (28.0-32.0); MEAN CORPUSCULAR VOLUME 104.9 fL (81.0-99.0); MEAN PLATELET VOLUME 9.5 fl (7.4-10.4); MONOCYTES % 13.4 % (2.0-8.0); NEUTROPHILS % 48.6 % (40.0-76.0); PLATELET 132 x1000/uL (130-400); RED BLOOD CELL COUNT 3.21 mill/uL (4.2-5.4); RED CELL DISTRIBUTION WIDTH 17.1 % (11.6-14.6)
[2017-05-22] MEDS: FOLIC ACID/VITAMIN B COMP W-C TABLET PO SCH (09:54)
[2017-05-22] MEDS: LOSARTAN POTASSIUM 25 MG TABLET PO SCH ×2 (09:55→20:31)
[2017-05-22] MEDS: PREDNISOLONE ACETATE 1% OPHTH DROPS 1ML RIGHTEYE SCH ×4 (10:05→20:47)
[2017-05-22] MEDS: ATROPINE SULFATE 1% OPHTH 2ML RIGHTEYE SCH ×2 (10:05→18:02)
[2017-05-22] MEDS: DIPHENHYDRAMINE 25MG CAPSULE PO SCH ×3 (10:06→18:01)
[2017-05-22] MEDS: LACTOBACILLUS GG CAPSULE PO SCH (10:07)
[2017-05-22] MEDS: CALCIUM ACETATE 667MG CAPSULE PO SCH ×3 (10:08→18:01)
[2017-05-22] MEDS: HYDRALAZINE HCL 50MG TABLET PO SCH ×2 (10:08→20:31)
[2017-05-22] MEDS: PANTOPRAZOLE SODIUM 40 MG/VIAL IV SCH (10:13)
[2017-05-22 12:00] VITALS: BP 159/76
[2017-05-22] MEDS ORDERED: MORPHINE SULFATE 2 MG/ML CPJ (NOT FOR IM USE) IV PRN (13:00)
[2017-05-22 16:00] VITALS: BP 147/84
[2017-05-22] MEDS: SUCRALFATE 1 G/10 ML UDC PO SCH ×2 (18:01→20:31)
[2017-05-22] MEDS ORDERED: ISOS1TAB PO (18:20)
[2017-05-22 20:00] VITALS: BP 142/76
[2017-05-22] MEDS: MORPHINE SULFATE 2 MG/ML CPJ (NOT FOR IM USE) IV PRN (20:31)
[2017-05-23] VITALS: BP 158/72
[2017-05-23] MEDS ORDERED: HYDROCODONE/ACETAMINOPHEN 5/325MG TABLET PO PRN (00:30)
[2017-05-23] MEDS: METRONIDAZOLE 250MG TABLET PO SCH ×4 (00:33→16:46)
[2017-05-23 04:00] VITALS: BP 156/74
[2017-05-23] MEDS: MORPHINE SULFATE 2 MG/ML CPJ (NOT FOR IM USE) IV PRN (05:22)
[2017-05-23] MEDS: SUCRALFATE 1 G/10 ML UDC PO SCH ×4 (06:17→20:42)
[2017-05-23 06:25] LABS: BASOPHILS % 0.4 % (0.0-2.0); HEMATOCRIT. 35.5 % (36.0-48.0); HEMOGLOBIN. 11.5 g/dL (12.0-16.0); LYMPHOCYTES % 30.2 % (20.0-50.0); MEAN CORPUSCULAR HEMOGLOBIN 33.9 pg (28.0-32.0); MEAN CORPUSCULAR VOLUME 104.3 fL (81.0-99.0); MEAN PLATELET VOLUME 9.7 fl (7.4-10.4); MONOCYTES % 12.3 % (2.0-8.0); NEUTROPHILS % 54.1 % (40.0-76.0); PLATELET 134 x1000/uL (130-400); RED CELL DISTRIBUTION WIDTH 16.9 % (11.6-14.6)
[2017-05-23 08:00] VITALS: BP 160/70
[2017-05-23] MEDS: LOSARTAN POTASSIUM 25 MG TABLET PO SCH ×2 (09:00→20:45)
[2017-05-23] MEDS: HYDRALAZINE HCL 50MG TABLET PO SCH ×4 (09:00→20:44)
[2017-05-23] MEDS: DIPHENHYDRAMINE 25MG CAPSULE PO SCH ×3 (10:00→16:53)
[2017-05-23] MEDS: LACTOBACILLUS GG CAPSULE PO SCH (10:00)
[2017-05-23] MEDS: PANTOPRAZOLE SODIUM 40 MG/VIAL IV SCH (10:00)
[2017-05-23] MEDS: CALCIUM ACETATE 667MG CAPSULE PO SCH ×3 (10:00→16:46)
[2017-05-23] MEDS: FOLIC ACID/VITAMIN B COMP W-C TABLET PO SCH (10:00)
[2017-05-23] MEDS: ATROPINE SULFATE 1% OPHTH 2ML RIGHTEYE SCH ×2 (10:01→16:45)
[2017-05-23] MEDS: PREDNISOLONE ACETATE 1% OPHTH DROPS 1ML RIGHTEYE SCH ×4 (10:01→20:51)
[2017-05-23 12:00] VITALS: BP 177/88
[2017-05-23] MEDS ORDERED: IPRATROPIUM/ALBUTEROL 0.5-3(2.5)MG/3ML NEB HHN PRN (13:30)
[2017-05-23 16:00] VITALS: BP 167/80
[2017-05-23] MEDS: LACTULOSE 20G/30ML UDC PO PRN (16:46)
[2017-05-23] MEDS: DOCUSATE SODIUM 100MG CAPSULE PO SCH (16:47)
[2017-05-23 20:00] VITALS: BP 154/64
[2017-05-23] MEDS: HYDROCODONE/ACETAMINOPHEN 5/325MG TABLET PO PRN (20:44)
[2017-05-23] MEDS: MORPHINE SULFATE 4 MG/ML CPJ (NOT FOR IM USE) IV PRN (21:24)
[2017-05-23] MEDS: IPRATROPIUM/ALBUTEROL 0.5-3(2.5)MG/3ML NEB HHN SCH (22:06)
[2017-05-24] VITALS (7 sets, daily range): BP systolic 112–172; BP diastolic 55–84
[2017-05-24] MEDS: METRONIDAZOLE 250MG TABLET PO SCH ×4 (00:03→18:42)
[2017-05-24] MEDS: IPRATROPIUM/ALBUTEROL 0.5-3(2.5)MG/3ML NEB HHN SCH ×3 (02:40→20:42)
[2017-05-24] MEDS: LACTULOSE 20G/30ML UDC PO PRN (06:10)
[2017-05-24] MEDS: SUCRALFATE 1 G/10 ML UDC PO SCH ×4 (06:10→22:14)
[2017-05-24] MEDS: HYDRALAZINE HCL 50MG TABLET PO SCH (06:11)
[2017-05-24] MEDS: PANTOPRAZOLE SODIUM 40 MG/VIAL IV SCH (09:23)
[2017-05-24] MEDS: DIPHENHYDRAMINE 25MG CAPSULE PO SCH ×3 (09:24→18:42)
[2017-05-24] MEDS: CALCIUM ACETATE 667MG CAPSULE PO SCH ×3 (09:24→18:43)
[2017-05-24] MEDS: FOLIC ACID/VITAMIN B COMP W-C TABLET PO SCH (09:24)
[2017-05-24] MEDS: DOCUSATE SODIUM 100MG CAPSULE PO SCH (09:24)
[2017-05-24] MEDS: LACTOBACILLUS GG CAPSULE PO SCH (09:24)
[2017-05-24] MEDS: ATROPINE SULFATE 1% OPHTH 2ML RIGHTEYE SCH ×2 (09:25→18:43)
[2017-05-24] MEDS: LOSARTAN POTASSIUM 25 MG TABLET PO SCH ×2 (09:25→22:14)
[2017-05-24] MEDS: PREDNISOLONE ACETATE 1% OPHTH DROPS 1ML RIGHTEYE SCH ×4 (09:26→22:15)
[2017-05-24] MEDS: MORPHINE SULFATE 4 MG/ML CPJ (NOT FOR IM USE) IV PRN ×2 (09:32→18:42)
[2017-05-24] MEDS: HYDRALAZINE HCL 100MG TABLET PO SCH ×2 (14:10→22:14)
[2017-05-24] MEDS: AMLODIPINE 5MG TABLET PO SCH ×2 (14:11→22:14)
[2017-05-24 17:52] LABS: BASOPHILS % 0.2 % (0.0-2.0); EOSINOPHILS % 1.4 % (0.0-5.0); HEMATOCRIT. 35.4 % (36.0-48.0); HEMOGLOBIN. 11.5 g/dL (12.0-16.0); LYMPHOCYTES % 26.3 % (20.0-50.0); MEAN CORPUSCULAR HEMOGLOBIN 33.3 pg (28.0-32.0); MEAN CORPUSCULAR VOLUME 102.4 fL (81.0-99.0); MEAN PLATELET VOLUME 9.7 fl (7.4-10.4); MONOCYTES % 9.6 % (2.0-8.0); NEUTROPHILS % 62.5 % (40.0-76.0); PLATELET 139 x1000/uL (130-400); RED BLOOD CELL COUNT 3.45 mill/uL (4.2-5.4); RED CELL DISTRIBUTION WIDTH 16.3 % (11.6-14.6)
[2017-05-25] MEDS: METRONIDAZOLE 250MG TABLET PO SCH ×2 (00:05→06:01)
[2017-05-25 00:26] VITALS: BP 122/69
[2017-05-25] MEDS: IPRATROPIUM/ALBUTEROL 0.5-3(2.5)MG/3ML NEB HHN SCH ×4 (01:04→20:16)
[2017-05-25 04:49] VITALS: BP 125/55
[2017-05-25] MEDS: HYDRALAZINE HCL 100MG TABLET PO SCH ×3 (06:09→21:55)
[2017-05-25] MEDS: CALCIUM ACETATE 667MG CAPSULE PO SCH ×3 (06:51→17:29)
[2017-05-25] MEDS: SUCRALFATE 1 G/10 ML UDC PO SCH ×4 (06:53→21:54)
[2017-05-25 07:53] VITALS: BP 127/71
[2017-05-25] MEDS: LACTOBACILLUS GG CAPSULE PO SCH (08:36)
[2017-05-25] MEDS: ONDANSETRON HCL 4MG/2ML VIAL IV PRN ×3 (08:36→20:24)
[2017-05-25] MEDS: PANTOPRAZOLE SODIUM 40 MG/VIAL IV SCH (08:36)
[2017-05-25] MEDS: DIPHENHYDRAMINE 25MG CAPSULE PO SCH ×3 (08:36→16:31)
[2017-05-25] MEDS: DOCUSATE SODIUM 100MG CAPSULE PO SCH (08:36)
[2017-05-25] MEDS: AMLODIPINE 5MG TABLET PO SCH ×2 (08:37→21:55)
[2017-05-25] MEDS: FOLIC ACID/VITAMIN B COMP W-C TABLET PO SCH (08:37)
[2017-05-25] MEDS: LOSARTAN POTASSIUM 25 MG TABLET PO SCH ×2 (08:37→21:55)
[2017-05-25] MEDS: ATROPINE SULFATE 1% OPHTH 2ML RIGHTEYE SCH ×2 (09:21→16:31)
[2017-05-25] MEDS: PREDNISOLONE ACETATE 1% OPHTH DROPS 1ML RIGHTEYE SCH ×4 (09:21→21:55)
[2017-05-25] MEDS: MORPHINE SULFATE 4 MG/ML CPJ (NOT FOR IM USE) IV PRN ×2 (11:38→20:14)
[2017-05-25 11:51] VITALS: BP 122/68
[2017-05-25 13:31] LABS: BASOPHILS % 0.4 % (0.0-2.0); EOSINOPHILS % 0.5 % (0.0-5.0); HEMATOCRIT. 37.8 % (36.0-48.0); HEMOGLOBIN. 12.1 g/dL (12.0-16.0); LYMPHOCYTES % 20.5 % (20.0-50.0); MEAN CORPUSCULAR HEMOGLOBIN 33.5 pg (28.0-32.0); MEAN CORPUSCULAR VOLUME 104.8 fL (81.0-99.0); MEAN PLATELET VOLUME 9.8 fl (7.4-10.4); MONOCYTES % 11.5 % (2.0-8.0); NEUTROPHILS % 67.1 % (40.0-76.0); PLATELET 123 x1000/uL (130-400); RED BLOOD CELL COUNT 3.61 mill/uL (4.2-5.4); RED CELL DISTRIBUTION WIDTH 16.8 % (11.6-14.6)
[2017-05-25 16:00] VITALS: BP 161/68
[2017-05-25 20:00] VITALS: BP 150/72
[2017-05-26] VITALS: BP 157/78
[2017-05-26] MEDS: IPRATROPIUM/ALBUTEROL 0.5-3(2.5)MG/3ML NEB HHN SCH ×4 (02:05→20:31)
[2017-05-26 04:00] VITALS: BP 151/74
[2017-05-26] MEDS: HYDRALAZINE HCL 100MG TABLET PO SCH ×3 (06:52→21:11)
[2017-05-26] MEDS: ONDANSETRON HCL 4MG/2ML VIAL IV PRN ×3 (06:52→19:43)
[2017-05-26] MEDS: SUCRALFATE 1 G/10 ML UDC PO SCH ×4 (06:52→21:11)
[2017-05-26 08:05] VITALS: BP 143/71
[2017-05-26] MEDS: PANTOPRAZOLE SODIUM 40 MG/VIAL IV SCH (09:10)
[2017-05-26] MEDS: CALCIUM ACETATE 667MG CAPSULE PO SCH ×3 (09:10→18:22)
[2017-05-26] MEDS: DIPHENHYDRAMINE 25MG CAPSULE PO SCH ×3 (09:10→18:22)
[2017-05-26] MEDS: LACTOBACILLUS GG CAPSULE PO SCH (09:11)
[2017-05-26] MEDS: DOCUSATE SODIUM 100MG CAPSULE PO SCH (09:11)
[2017-05-26] MEDS: LOSARTAN POTASSIUM 25 MG TABLET PO SCH ×2 (09:11→21:11)
[2017-05-26] MEDS: FOLIC ACID/VITAMIN B COMP W-C TABLET PO SCH (09:11)
[2017-05-26] MEDS: PREDNISOLONE ACETATE 1% OPHTH DROPS 1ML RIGHTEYE SCH ×4 (09:12→21:12)
[2017-05-26] MEDS: AMLODIPINE 5MG TABLET PO SCH ×2 (09:12→21:11)
[2017-05-26] MEDS: ATROPINE SULFATE 1% OPHTH 2ML RIGHTEYE SCH ×2 (09:13→18:23)
[2017-05-26 12:00] VITALS: BP 153/64
[2017-05-26] MEDS ORDERED: MORPHINE SULFATE 4 MG/ML CPJ (NOT FOR IM USE) IV PRN (15:00)
[2017-05-26 16:00] VITALS: BP 148/80
[2017-05-26] MEDS: LORAZEPAM 0.5MG TABLET PO PRN (19:00)
[2017-05-26 20:00] VITALS: BP 137/74
[2017-05-26] MEDS: MORPHINE SULFATE 4 MG/ML CPJ (NOT FOR IM USE) IV PRN (20:07)
[2017-05-27] MEDS: IPRATROPIUM/ALBUTEROL 0.5-3(2.5)MG/3ML NEB HHN SCH ×4 (01:10→21:32)
[2017-05-27 06:20] VITALS: BP 147/68
[2017-05-27] MEDS: HYDRALAZINE HCL 100MG TABLET PO SCH ×4 (06:48→23:45)
[2017-05-27] MEDS: SUCRALFATE 1 G/10 ML UDC PO SCH ×5 (06:51→22:28)
[2017-05-27] MEDS: LOSARTAN POTASSIUM 25 MG TABLET PO SCH ×2 (07:12→22:28)
[2017-05-27] MEDS: AMLODIPINE 5MG TABLET PO SCH ×2 (07:12→22:29)
[2017-05-27 07:47] LABS: BASOPHILS % 0.4 % (0.0-2.0); HEMATOCRIT. 34.8 % (36.0-48.0); HEMOGLOBIN. 11.4 g/dL (12.0-16.0); LYMPHOCYTES % 28.5 % (20.0-50.0); MEAN CORPUSCULAR HEMOGLOBIN 33.8 pg (28.0-32.0); MEAN PLATELET VOLUME 9.7 fl (7.4-10.4); MONOCYTES % 13.8 % (2.0-8.0); NEUTROPHILS % 55.3 % (40.0-76.0); PLATELET 178 x1000/uL (130-400); RED BLOOD CELL COUNT 3.38 mill/uL (4.2-5.4)
[2017-05-27 08:10] VITALS: BP 135/64
[2017-05-27] MEDS: FOLIC ACID/VITAMIN B COMP W-C TABLET PO SCH (08:53)
[2017-05-27] MEDS: DIPHENHYDRAMINE 25MG CAPSULE PO SCH ×3 (08:53→18:54)
[2017-05-27] MEDS: CALCIUM ACETATE 667MG CAPSULE PO SCH ×3 (08:53→18:54)
[2017-05-27] MEDS: PREDNISOLONE ACETATE 1% OPHTH DROPS 1ML RIGHTEYE SCH ×4 (08:54→22:29)
[2017-05-27] MEDS: ATROPINE SULFATE 1% OPHTH 2ML RIGHTEYE SCH ×2 (08:54→18:54)
[2017-05-27] MEDS: PANTOPRAZOLE SODIUM 40 MG/VIAL IV SCH (08:54)
[2017-05-27] MEDS: LACTOBACILLUS GG CAPSULE PO SCH (08:54)
[2017-05-27] MEDS: DOCUSATE SODIUM 100MG CAPSULE PO SCH (08:54)
[2017-05-27] MEDS: MORPHINE SULFATE 4 MG/ML CPJ (NOT FOR IM USE) IV PRN (08:54)
[2017-05-27 11:59] VITALS: BP 156/84
[2017-05-27] MEDS ORDERED: LORAZEPAM 1MG TABLET PO NR (14:00)
[2017-05-27 16:18] VITALS: BP 131/71
[2017-05-27 20:15] VITALS: BP 149/76
[2017-05-27] MEDS: LORAZEPAM 0.5MG TABLET PO PRN (23:45)
[2017-05-28 00:31] VITALS: BP 164/80
[2017-05-28] MEDS: MORPHINE SULFATE 4 MG/ML CPJ (NOT FOR IM USE) IV PRN ×3 (00:37→15:11)
[2017-05-28] MEDS: IPRATROPIUM/ALBUTEROL 0.5-3(2.5)MG/3ML NEB HHN SCH ×2 (03:35→15:40)
[2017-05-28 04:00] VITALS: BP 148/64
[2017-05-28 06:40] LABS: HEMATOCRIT. 34.9 % (36.0-48.0); HEMOGLOBIN. 11.4 g/dL (12.0-16.0); MEAN CORPUSCULAR HEMOGLOBIN 33.9 pg (28.0-32.0); MEAN CORPUSCULAR VOLUME 104.2 fL (81.0-99.0); MEAN PLATELET VOLUME 9.3 fl (7.4-10.4); PLATELET 149 x1000/uL (130-400); RED BLOOD CELL COUNT 3.35 mill/uL (4.2-5.4)
[2017-05-28] MEDS: HYDRALAZINE HCL 100MG TABLET PO SCH ×2 (06:48→13:25)
[2017-05-28] MEDS: SUCRALFATE 1 G/10 ML UDC PO SCH ×2 (06:48→12:15)
[2017-05-28 08:00] LABS: BG CARBOXYHEMOGLOBIN 0.6 % (0.5-1.5); BG DEOXYHEMOGLOBIN 8.6 % (0.0-5.0); BG HCO3 ACT 27.4 mmol/L (22.0-26.0); BG METHEMOGLOBIN 0.3 % (0.0-1.5); BG OXYGEN SATURATION 91.3 % (92.0-98.5); BG OXYHEMOGLOBIN 90.5 % (94.0-97.0); BG PCO2 46.6 mmHg (35.0-45.0); BG PH 7.388 (7.350-7.450); BG PO2 61.4 mmHg (75.0-100.0); BG SAMPLE SITE RIGHT RADIAL; BG TOTAL HEMOGLOBIN 11.7 g/dL (12.0-18.0); BG VENT MODE ROOM AIR
[2017-05-28 08:11] VITALS: BP 169/78
[2017-05-28] MEDS: CALCIUM ACETATE 667MG CAPSULE PO SCH ×2 (08:48→13:26)
[2017-05-28] MEDS: PANTOPRAZOLE SODIUM 40 MG/VIAL IV SCH (08:49)
[2017-05-28] MEDS: LACTOBACILLUS GG CAPSULE PO SCH (08:49)
[2017-05-28] MEDS: DIPHENHYDRAMINE 25MG CAPSULE PO SCH ×2 (08:49→13:25)
[2017-05-28] MEDS: DOCUSATE SODIUM 100MG CAPSULE PO SCH (08:49)
[2017-05-28] MEDS: LOSARTAN POTASSIUM 25 MG TABLET PO SCH (08:49)
[2017-05-28] MEDS: AMLODIPINE 5MG TABLET PO SCH (08:50)
[2017-05-28] MEDS: FOLIC ACID/VITAMIN B COMP W-C TABLET PO SCH (08:50)
[2017-05-28] MEDS: PREDNISOLONE ACETATE 1% OPHTH DROPS 1ML RIGHTEYE SCH ×2 (08:51→13:26)
[2017-05-28] MEDS: ATROPINE SULFATE 1% OPHTH 2ML RIGHTEYE SCH (08:51)
[2017-05-28] MEDS ORDERED: AMLODIPINE 5MG TABLET PO ONE (12:00)
[2017-05-28 12:21] VITALS: BP 154/75
[2017-05-28] MEDS ORDERED: SILDENAFIL CITRATE 20MG TABLET PO SCH (14:00)
[2017-05-28 15:26] VITALS: BP 154/75
[2017-05-28 17:11] LABS: PLATELET ESTIMATE NORMAL
[2017-05-28] MEDS ORDERED: AMLODIPINE 5MG TABLET PO SCH (21:00)
== END 2017-05-28 16:05 | DRG 377 ==
LOC: EDBEDREQTM 19:36 → EDBEDREQ 19:36 → ER 20:16 → 6WST 20:17 → ENRESERV 21:24
PROVIDERS: ADMIT Family Medicine Adult Medicine; ATTEND Family Medicine Adult Medicine
PROC: 5A1D60Z (ICD-10-PCS; principal; 2017-05-24)
DX: K25.4 Chronic or unspecified gastric ulcer with hemorrhage (principal); N18.6 End stage renal disease; J96.01 Acute respiratory failure with hypoxia; I13.2 Hypertensive heart and chronic kidney disease with heart failure and with stage 5 chronic kidney disease, or end stage renal disease; J84.9 Interstitial pulmonary disease, unspecified; R18.8 Other ascites; I27.2 Other secondary pulmonary hypertension; K74.60 Unspecified cirrhosis of liver; J98.11 Atelectasis; F40.240 Claustrophobia; K57.90 Diverticulosis of intestine, part unspecified, without perforation or abscess without bleeding; D53.9 Nutritional anemia, unspecified; K80.20 Calculus of gallbladder without cholecystitis without obstruction; H40.9 Unspecified glaucoma; R74.8 Abnormal levels of other serum enzymes; J44.9 Chronic obstructive pulmonary disease, unspecified; D63.1 Anemia in chronic kidney disease; I25.10 Atherosclerotic heart disease of native coronary artery without angina pectoris; I50.9 Heart failure, unspecified; I73.9 Peripheral vascular disease, unspecified; B19.20 Unspecified viral hepatitis C without hepatic coma; I25.2 Old myocardial infarction; Z99.2 Dependence on renal dialysis; Z79.899 Other long term (current) drug therapy; Z82.49 Family history of ischemic heart disease and other diseases of the circulatory system; Z87.11 Personal history of peptic ulcer disease; K21.0 Gastro-esophageal reflux disease with esophagitis
CPT/HCPCS: 36415; 36600; 71010; 76700; 78580; 80048; 80053; 80076; 82270; 82375; 82805; 83605; 83690; 83735; 85025; 85610; 86850; 86900; 93970; 94640; 94664; 96374; 96375; 97110; 97116; 97162; 97166; 97530; 99285; C9113; J2270; J2405; J7030; J7620; Q0163

== ENCOUNTER 2017-05-28 16:00 | Inpatient (IN) | payer MEDICARE, MEDICAID ==
[~2017-05-28] VITALS: Ht 162.6 cm; Wt 68.9 kg
[2017-05-28 16:00] VITALS: BP 153/74
[~2017-05-28 16:00] MED LIST changes: +ISOS1TAB PO
[2017-05-28] MEDS ORDERED: LORAZEPAM 0.5MG TABLET PO PRN (17:30)
[2017-05-28] MEDS ORDERED: IPRATROPIUM/ALBUTEROL 0.5-3(2.5)MG/3ML NEB HHN PRN (17:30)
[2017-05-28] MEDS ORDERED: LACTULOSE 20G/30ML UDC PO PRN (17:30)
[2017-05-28] MEDS ORDERED: DICYCLOMINE HCL 10MG CAPSULE PO PRN (17:30)
[2017-05-28] MEDS ORDERED: ACETAMINOPHEN 325MG TABLET PO PRN (17:30)
[2017-05-28 20:00] VITALS: BP 141/67
[2017-05-28] MEDS: AMLODIPINE 5MG TABLET PO SCH (21:00)
[2017-05-28] MEDS: HYDROCODONE/ACETAMINOPHEN 5/325MG TABLET PO PRN (21:01)
[2017-05-28] MEDS: IPRATROPIUM/ALBUTEROL 0.5-3(2.5)MG/3ML NEB HHN SCH (21:04)
[2017-05-28] MEDS: HYDRALAZINE HCL 100MG TABLET PO SCH (22:00)
[2017-05-28] MEDS: SUCRALFATE 1G TABLET PO SCH (22:33)
[2017-05-28] MEDS: LOSARTAN POTASSIUM 25 MG TABLET PO SCH (22:33)
[2017-05-28] MEDS: SILDENAFIL CITRATE 20MG TABLET PO SCH (22:34)
[2017-05-28] MEDS: ATROPINE SULFATE 1% OPHTH 2ML RIGHTEYE SCH (23:00)
[2017-05-28] MEDS: PREDNISOLONE ACETATE 1% OPHTH DROPS 1ML RIGHTEYE SCH (23:01)
[2017-05-29] MEDS: IPRATROPIUM/ALBUTEROL 0.5-3(2.5)MG/3ML NEB HHN SCH ×4 (02:12→20:18)
[2017-05-29] MEDS: PANTOPRAZOLE 40MG DR TABLET PO SCH (06:11)
[2017-05-29] MEDS: SILDENAFIL CITRATE 20MG TABLET PO SCH ×3 (06:11→22:49)
[2017-05-29] MEDS: HYDRALAZINE HCL 100MG TABLET PO SCH ×3 (06:11→22:00)
[2017-05-29] MEDS: SUCRALFATE 1G TABLET PO SCH ×4 (06:12→21:23)
[2017-05-29 07:48] LABS: HEMATOCRIT. 32.3 % (36.0-48.0); HEMOGLOBIN. 10.3 g/dL (12.0-16.0); MEAN CORPUSCULAR HEMOGLOBIN 33.5 pg (28.0-32.0); MEAN CORPUSCULAR VOLUME 105.4 fL (81.0-99.0); MEAN PLATELET VOLUME 9.9 fl (7.4-10.4); PLATELET 124 x1000/uL (130-400); RED BLOOD CELL COUNT 3.07 mill/uL (4.2-5.4); RED CELL DISTRIBUTION WIDTH 17.3 % (11.6-14.6)
[2017-05-29 07:58] LABS: CARBON DIOXIDE 27 mEq/L (21-32); CHLORIDE 108 mEq/L (98-107)
[2017-05-29 08:00] VITALS: BP 145/67
[2017-05-29 08:04] LABS: PREALBUMIN 16.5 mg/dL (20.0-40.0)
[2017-05-29] MEDS ORDERED: DOCUSATE SODIUM 100MG CAPSULE PO SCH (09:00)
[2017-05-29] MEDS ORDERED: DIPHENHYDRAMINE 25MG CAPSULE PO SCH (09:00)
[2017-05-29] MEDS: LOSARTAN POTASSIUM 25 MG TABLET PO SCH ×2 (09:00→17:00)
[2017-05-29] MEDS: AMLODIPINE 5MG TABLET PO SCH ×2 (09:00→21:00)
[2017-05-29] MEDS ORDERED: DIPHENHYDRAMINE 50MG CAPSULE PO PRN (09:15)
[2017-05-29] MEDS: LACTOBACILLUS GG CAPSULE PO SCH (09:18)
[2017-05-29] MEDS: FOLIC ACID/VITAMIN B COMP W-C TABLET PO SCH (09:18)
[2017-05-29] MEDS: ATROPINE SULFATE 1% OPHTH 2ML RIGHTEYE SCH ×2 (09:19→17:02)
[2017-05-29] MEDS: CALCIUM ACETATE 667MG CAPSULE PO SCH ×3 (09:19→17:01)
[2017-05-29] MEDS: PREDNISOLONE ACETATE 1% OPHTH DROPS 1ML RIGHTEYE SCH ×4 (09:19→21:24)
[2017-05-29] MEDS: HYDROCODONE/ACETAMINOPHEN 5/325MG TABLET PO PRN ×2 (09:30→21:23)
[2017-05-29] MEDS: DOCUSATE SODIUM 100MG CAPSULE PO SCH (17:01)
[2017-05-29 17:45] LABS: PLATELET ESTIMATE DECREASED
[2017-05-29 20:00] VITALS: BP 110/66
[2017-05-29] MEDS: POLYETHYLENE GLYCOL 3350 (17GM) 1 DOSE PACK PO SCH (21:00)
[2017-05-30] MEDS: IPRATROPIUM/ALBUTEROL 0.5-3(2.5)MG/3ML NEB HHN SCH ×4 (02:00→22:08)
[2017-05-30] MEDS ORDERED: LORAZEPAM 0.5MG TABLET PO PRN (03:51)
[2017-05-30] MEDS: SUCRALFATE 1G TABLET PO SCH ×4 (06:14→21:10)
[2017-05-30] MEDS: HYDRALAZINE HCL 100MG TABLET PO SCH ×4 (06:15→21:51)
[2017-05-30] MEDS: SILDENAFIL CITRATE 20MG TABLET PO SCH ×3 (06:15→21:12)
[2017-05-30] MEDS: PANTOPRAZOLE 40MG DR TABLET PO SCH (06:16)
[2017-05-30 07:11] LABS: HEMATOCRIT. 31.5 % (36.0-48.0); HEMOGLOBIN. 10.2 g/dL (12.0-16.0); MEAN CORPUSCULAR HEMOGLOBIN 33.5 pg (28.0-32.0); MEAN CORPUSCULAR VOLUME 102.9 fL (81.0-99.0); MEAN PLATELET VOLUME 9.9 fl (7.4-10.4); PLATELET 124 x1000/uL (130-400); RED BLOOD CELL COUNT 3.06 mill/uL (4.2-5.4); RED CELL DISTRIBUTION WIDTH 16.5 % (11.6-14.6)
[2017-05-30 07:50] LABS: FERRITIN 347 ng/mL (10-291)
[2017-05-30 08:00] VITALS: BP 119/63
[2017-05-30 08:01] LABS: VITAMIN B12 SERUM 1007 pg/mL (211-911)
[2017-05-30 08:05] LABS: FOLIC ACID (FOLATE) SERUM > 20.00 ng/mL (>5.38)
[2017-05-30 08:38] LABS: CARBON DIOXIDE 29 mEq/L (21-32); CHLORIDE 104 mEq/L (98-107); HDL CHOLESTEROL 69 mg/dL (40-59); LDL CHOLESTEROL 50 mg/dL (5-100); PHOSPHORUS 2.1 mg/dL (2.5-4.9)
[2017-05-30 08:45] LABS: TOTAL IRON BINDING CAPACITY 238 ug/dL (250-450)
[2017-05-30] MEDS: AMLODIPINE 5MG TABLET PO SCH ×2 (09:00→21:11)
[2017-05-30] MEDS: LOSARTAN POTASSIUM 25 MG TABLET PO SCH ×2 (09:00→17:27)
[2017-05-30] MEDS: CALCIUM ACETATE 667MG CAPSULE PO SCH ×3 (09:06→17:27)
[2017-05-30] MEDS: DOCUSATE SODIUM 100MG CAPSULE PO SCH ×2 (09:06→17:27)
[2017-05-30] MEDS: ATROPINE SULFATE 1% OPHTH 2ML RIGHTEYE SCH ×2 (09:06→17:27)
[2017-05-30] MEDS: LACTOBACILLUS GG CAPSULE PO SCH (09:06)
[2017-05-30] MEDS: FOLIC ACID/VITAMIN B COMP W-C TABLET PO SCH (09:06)
[2017-05-30] MEDS: PREDNISOLONE ACETATE 1% OPHTH DROPS 1ML RIGHTEYE SCH ×4 (09:07→21:11)
[2017-05-30] MEDS: HYDROCODONE/ACETAMINOPHEN 5/325MG TABLET PO PRN (09:07)
[2017-05-30] MEDS: FERROUS SULFATE 325MG TABLET PO SCH ×2 (12:12→17:27)
[2017-05-30 13:54] VITALS: BP 122/62
[2017-05-30 17:00] VITALS: BP 130/67
[2017-05-30] MEDS: HYDROCODONE/ACETAMINOPHEN 10/325MG TABLET PO PRN (17:28)
[2017-05-30 17:36] LABS: PLATELET ESTIMATE DECREASED
[2017-05-30] MEDS: POLYETHYLENE GLYCOL 3350 (17GM) 1 DOSE PACK PO SCH (21:00)
[2017-05-30 22:00] VITALS: BP 143/75
[2017-05-30] MEDS ORDERED: METOCLOPRAMIDE HCL 10MG/2ML VIAL IV SCH (22:00)
[2017-05-31] MEDS: IPRATROPIUM/ALBUTEROL 0.5-3(2.5)MG/3ML NEB HHN SCH ×4 (03:25→21:26)
[2017-05-31] MEDS: HYDRALAZINE HCL 100MG TABLET PO SCH ×3 (06:00→22:00)
[2017-05-31] MEDS: SILDENAFIL CITRATE 20MG TABLET PO SCH ×3 (06:00→22:00)
[2017-05-31] MEDS: SUCRALFATE 1G TABLET PO SCH ×4 (06:02→21:24)
[2017-05-31] MEDS: PANTOPRAZOLE 40MG DR TABLET PO SCH (06:02)
[2017-05-31 08:00] VITALS: BP 142/76
[2017-05-31] MEDS: LACTOBACILLUS GG CAPSULE PO SCH (08:41)
[2017-05-31] MEDS: CALCIUM ACETATE 667MG CAPSULE PO SCH ×3 (08:41→16:37)
[2017-05-31] MEDS: FOLIC ACID/VITAMIN B COMP W-C TABLET PO SCH (08:41)
[2017-05-31] MEDS: DOCUSATE SODIUM 100MG CAPSULE PO SCH ×2 (08:41→16:36)
[2017-05-31] MEDS: FERROUS SULFATE 325MG TABLET PO SCH ×3 (08:41→16:36)
[2017-05-31] MEDS: LIDOCAINE 5% PATCH TOP SCH (08:42)
[2017-05-31] MEDS: LOSARTAN POTASSIUM 25 MG TABLET PO SCH ×2 (08:42→16:39)
[2017-05-31] MEDS: ATROPINE SULFATE 1% OPHTH 2ML RIGHTEYE SCH ×2 (08:42→16:37)
[2017-05-31] MEDS: PREDNISOLONE ACETATE 1% OPHTH DROPS 1ML RIGHTEYE SCH ×4 (08:42→21:26)
[2017-05-31] MEDS: AMLODIPINE 5MG TABLET PO SCH ×2 (08:43→21:00)
[2017-05-31] MEDS: HYDROCODONE/ACETAMINOPHEN 10/325MG TABLET PO PRN ×2 (08:44→16:43)
[2017-05-31 16:32] LABS: CLARITY URINE CLOUDY (CLEAR); COLOR URINE DARK YELLOW (YELLOW); GLUCOSE URINE NEGATIVE (NEGATIVE); KETONES URINE NEGATIVE (NEGATIVE); LEUKOCYTE ESTERASE URINE 1+ (NEGATIVE); NITRITE URINE NEGATIVE (NEGATIVE); OCCULT BLOOD URINE NEGATIVE (NEGATIVE); PROTEIN URINE 3+ (NEGATIVE)
[2017-05-31 16:40] VITALS: BP 137/72
[2017-05-31 20:00] VITALS: BP 98/59
[2017-05-31] MEDS: POLYETHYLENE GLYCOL 3350 (17GM) 1 DOSE PACK PO SCH (21:00)
[2017-06-01] MEDS: IPRATROPIUM/ALBUTEROL 0.5-3(2.5)MG/3ML NEB HHN SCH ×4 (02:10→20:59)
[2017-06-01] MEDS: SILDENAFIL CITRATE 20MG TABLET PO SCH ×3 (06:33→22:00)
[2017-06-01] MEDS: HYDRALAZINE HCL 100MG TABLET PO SCH ×3 (06:33→22:00)
[2017-06-01] MEDS: SUCRALFATE 1G TABLET PO SCH ×4 (06:33→21:05)
[2017-06-01] MEDS: PANTOPRAZOLE 40MG DR TABLET PO SCH (06:33)
[2017-06-01 08:00] VITALS: BP 118/67
[2017-06-01] MEDS: DOCUSATE SODIUM 100MG CAPSULE PO SCH ×2 (08:59→17:57)
[2017-06-01] MEDS: CALCIUM ACETATE 667MG CAPSULE PO SCH ×3 (08:59→17:57)
[2017-06-01] MEDS: FOLIC ACID/VITAMIN B COMP W-C TABLET PO SCH (08:59)
[2017-06-01] MEDS: FERROUS SULFATE 325MG TABLET PO SCH ×3 (08:59→17:57)
[2017-06-01] MEDS: LOSARTAN POTASSIUM 25 MG TABLET PO SCH ×2 (08:59→17:58)
[2017-06-01] MEDS: AMLODIPINE 5MG TABLET PO SCH ×2 (08:59→21:00)
[2017-06-01] MEDS: LACTOBACILLUS GG CAPSULE PO SCH (09:00)
[2017-06-01] MEDS: LIDOCAINE 5% PATCH TOP SCH (09:01)
[2017-06-01] MEDS: ONDANSETRON 4MG ODT PO PRN (09:08)
[2017-06-01] MEDS: HYDROCODONE/ACETAMINOPHEN 10/325MG TABLET PO PRN ×2 (09:10→14:35)
[2017-06-01] MEDS: PREDNISOLONE ACETATE 1% OPHTH DROPS 1ML RIGHTEYE SCH ×4 (09:20→21:05)
[2017-06-01] MEDS: ATROPINE SULFATE 1% OPHTH 2ML RIGHTEYE SCH ×2 (09:20→17:58)
[2017-06-01 20:00] VITALS: BP 101/59
[2017-06-01] MEDS: POLYETHYLENE GLYCOL 3350 (17GM) 1 DOSE PACK PO SCH (21:00)
[2017-06-02] MEDS: IPRATROPIUM/ALBUTEROL 0.5-3(2.5)MG/3ML NEB HHN SCH ×4 (01:36→19:40)
[2017-06-02] MEDS: ONDANSETRON 4MG ODT PO PRN ×2 (02:54→09:34)
[2017-06-02 06:09] LABS: HEMATOCRIT. 30.1 % (36.0-48.0); HEMOGLOBIN. 9.8 g/dL (12.0-16.0); MEAN CORPUSCULAR HEMOGLOBIN 33.5 pg (28.0-32.0); MEAN CORPUSCULAR VOLUME 102.6 fL (81.0-99.0); MEAN PLATELET VOLUME 9.5 fl (7.4-10.4); PLATELET 133 x1000/uL (130-400); RED BLOOD CELL COUNT 2.93 mill/uL (4.2-5.4); RED CELL DISTRIBUTION WIDTH 16.3 % (11.6-14.6)
[2017-06-02] MEDS: SUCRALFATE 1G TABLET PO SCH ×4 (06:26→21:54)
[2017-06-02] MEDS: PANTOPRAZOLE 40MG DR TABLET PO SCH (06:26)
[2017-06-02] MEDS: SILDENAFIL CITRATE 20MG TABLET PO SCH ×3 (06:37→22:46)
[2017-06-02] MEDS: HYDRALAZINE HCL 100MG TABLET PO SCH ×3 (06:37→22:00)
[2017-06-02 06:44] LABS: PHOSPHORUS 1.2 mg/dL (2.5-4.9)
[2017-06-02 08:00] VITALS: BP 134/62
[2017-06-02 08:08] LABS: 25-HYDROXY VITAMIN D3 12 ng/mL (.)
[2017-06-02] MEDS: LOSARTAN POTASSIUM 25 MG TABLET PO SCH ×2 (09:00→17:00)
[2017-06-02] MEDS: LACTOBACILLUS GG CAPSULE PO SCH (09:00)
[2017-06-02] MEDS: DOCUSATE SODIUM 100MG CAPSULE PO SCH ×2 (09:00→17:39)
[2017-06-02] MEDS: CALCIUM ACETATE 667MG CAPSULE PO SCH (09:00)
[2017-06-02] MEDS: FOLIC ACID/VITAMIN B COMP W-C TABLET PO SCH (09:00)
[2017-06-02] MEDS: FERROUS SULFATE 325MG TABLET PO SCH ×3 (09:00→17:39)
[2017-06-02] MEDS: AMLODIPINE 5MG TABLET PO SCH ×2 (09:00→21:55)
[2017-06-02] MEDS: HYDROCODONE/ACETAMINOPHEN 10/325MG TABLET PO PRN ×2 (09:43→19:57)
[2017-06-02] MEDS: LIDOCAINE 5% PATCH TOP SCH (09:44)
[2017-06-02] MEDS: PREDNISOLONE ACETATE 1% OPHTH DROPS 1ML RIGHTEYE SCH ×4 (09:45→21:55)
[2017-06-02] MEDS: ATROPINE SULFATE 1% OPHTH 2ML RIGHTEYE SCH ×2 (09:45→17:41)
[2017-06-02] MEDS ORDERED: SODIUM POLYSTYRENE SULFONATE 15 G/60 ML BOT PO NR (11:15)
[2017-06-02 13:48] LABS: PLATELET ESTIMATE NORMAL
[2017-06-02 20:00] VITALS: BP 121/62
[2017-06-02] MEDS: POLYETHYLENE GLYCOL 3350 (17GM) 1 DOSE PACK PO SCH (21:00)
[2017-06-03] MEDS: IPRATROPIUM/ALBUTEROL 0.5-3(2.5)MG/3ML NEB HHN SCH ×4 (01:44→21:37)
[2017-06-03] MEDS: HYDRALAZINE HCL 100MG TABLET PO SCH ×3 (06:00→22:00)
[2017-06-03] MEDS: SUCRALFATE 1G TABLET PO SCH ×4 (06:04→21:47)
[2017-06-03] MEDS: SILDENAFIL CITRATE 20MG TABLET PO SCH ×3 (06:05→22:00)
[2017-06-03 07:13] LABS: HEMATOCRIT. 30.1 % (36.0-48.0); HEMOGLOBIN. 9.9 g/dL (12.0-16.0); MEAN CORPUSCULAR HEMOGLOBIN 33.8 pg (28.0-32.0); MEAN CORPUSCULAR VOLUME 102.5 fL (81.0-99.0); MEAN PLATELET VOLUME 10.2 fl (7.4-10.4); PLATELET 154 x1000/uL (130-400); RED BLOOD CELL COUNT 2.94 mill/uL (4.2-5.4); RED CELL DISTRIBUTION WIDTH 16.5 % (11.6-14.6)
[2017-06-03 08:00] VITALS: BP 136/49
[2017-06-03] MEDS: LOSARTAN POTASSIUM 25 MG TABLET PO SCH ×2 (08:44→17:00)
[2017-06-03] MEDS: DOCUSATE SODIUM 100MG CAPSULE PO SCH ×2 (08:44→17:11)
[2017-06-03] MEDS: FOLIC ACID/VITAMIN B COMP W-C TABLET PO SCH (08:44)
[2017-06-03] MEDS: LACTOBACILLUS GG CAPSULE PO SCH (08:44)
[2017-06-03] MEDS: FERROUS SULFATE 325MG TABLET PO SCH ×3 (08:44→17:11)
[2017-06-03] MEDS: AMLODIPINE 5MG TABLET PO SCH ×2 (08:45→21:00)
[2017-06-03] MEDS: ATROPINE SULFATE 1% OPHTH 2ML RIGHTEYE SCH ×2 (08:46→17:12)
[2017-06-03] MEDS: PREDNISOLONE ACETATE 1% OPHTH DROPS 1ML RIGHTEYE SCH ×4 (08:46→21:47)
[2017-06-03] MEDS: LIDOCAINE 5% PATCH TOP SCH (08:49)
[2017-06-03] MEDS: HYDROCODONE/ACETAMINOPHEN 10/325MG TABLET PO PRN ×2 (09:57→15:05)
[2017-06-03] MEDS ORDERED: ERGOCALCIFEROL 50000UNITS CAPSULE PO SCH (16:00)
[2017-06-03 16:32] LABS: PLATELET ESTIMATE NORMAL
[2017-06-03 19:00] VITALS: BP 109/66
[2017-06-03] MEDS: POLYETHYLENE GLYCOL 3350 (17GM) 1 DOSE PACK PO SCH (21:00)
[2017-06-04] MEDS: IPRATROPIUM/ALBUTEROL 0.5-3(2.5)MG/3ML NEB HHN SCH ×2 (02:38→08:48)
[2017-06-04] MEDS: HYDRALAZINE HCL 100MG TABLET PO SCH (06:00)
[2017-06-04] MEDS: SILDENAFIL CITRATE 20MG TABLET PO SCH (06:00)
[2017-06-04] MEDS: SUCRALFATE 1G TABLET PO SCH ×2 (07:15→10:26)
[2017-06-04 08:00] VITALS: BP 142/77
[2017-06-04] MEDS: LACTOBACILLUS GG CAPSULE PO SCH (08:28)
[2017-06-04] MEDS: AMLODIPINE 5MG TABLET PO SCH (08:29)
[2017-06-04] MEDS: FERROUS SULFATE 325MG TABLET PO SCH (08:29)
[2017-06-04] MEDS: LOSARTAN POTASSIUM 25 MG TABLET PO SCH (08:29)
[2017-06-04] MEDS: DOCUSATE SODIUM 100MG CAPSULE PO SCH (08:29)
[2017-06-04] MEDS: FOLIC ACID/VITAMIN B COMP W-C TABLET PO SCH (08:30)
[2017-06-04] MEDS: LIDOCAINE 5% PATCH TOP SCH (08:40)
[2017-06-04] MEDS: PREDNISOLONE ACETATE 1% OPHTH DROPS 1ML RIGHTEYE SCH (08:41)
[2017-06-04] MEDS: ATROPINE SULFATE 1% OPHTH 2ML RIGHTEYE SCH (08:42)
[2017-06-04] MEDS: HYDROCODONE/ACETAMINOPHEN 10/325MG TABLET PO PRN (08:46)
[2017-06-04 12:01] VITALS: BP 142/77
== END 2017-06-04 13:05 | disposition home health service (06) | DRG 291 ==
PROVIDERS: ADMIT Physical Medicine & Rehabilitation Spinal Cord Injury Medicine; ATTEND Family Medicine Adult Medicine
PROC: 5A1D60Z (ICD-10-PCS; principal; 2017-06-03)
DX: I13.2 Hypertensive heart and chronic kidney disease with heart failure and with stage 5 chronic kidney disease, or end stage renal disease (principal); I50.33 Acute on chronic diastolic (congestive) heart failure; J84.9 Interstitial pulmonary disease, unspecified; R18.8 Other ascites; K29.71 Gastritis, unspecified, with bleeding; K29.81 Duodenitis with bleeding; N18.6 End stage renal disease; I27.2 Other secondary pulmonary hypertension; K74.60 Unspecified cirrhosis of liver; E87.1 Hypo-osmolality and hyponatremia; J98.11 Atelectasis; J44.9 Chronic obstructive pulmonary disease, unspecified; D64.9 Anemia, unspecified; I25.10 Atherosclerotic heart disease of native coronary artery without angina pectoris; R26.9 Unspecified abnormalities of gait and mobility; R09.02 Hypoxemia; M43.16 Spondylolisthesis, lumbar region; M47.896 Other spondylosis, lumbar region; M46.96 Unspecified inflammatory spondylopathy, lumbar region; K80.20 Calculus of gallbladder without cholecystitis without obstruction; B19.20 Unspecified viral hepatitis C without hepatic coma; D63.1 Anemia in chronic kidney disease; E55.9 Vitamin D deficiency, unspecified; E87.5 Hyperkalemia; F06.31 Mood disorder due to known physiological condition with depressive features; F32.9 Major depressive disorder, single episode, unspecified; F41.9 Anxiety disorder, unspecified; H40.9 Unspecified glaucoma; I73.9 Peripheral vascular disease, unspecified; K57.90 Diverticulosis of intestine, part unspecified, without perforation or abscess without bleeding; Z79.899 Other long term (current) drug therapy; Z99.2 Dependence on renal dialysis; Z82.49 Family history of ischemic heart disease and other diseases of the circulatory system; I25.2 Old myocardial infarction; K21.0 Gastro-esophageal reflux disease with esophagitis
CPT/HCPCS: 36415; 72110; 80048; 80051; 80053; 80061; 81001; 82270; 82306; 82607; 82728; 82746; 83036; 83540; 83550; 83735; 84100; 84134; 84443; 84630; 85025; 87077; 87086; 92610; 93970; 94640; 94664; 97110; 97112; 97116; 97162; 97166; 97530; 97535; 97760; J7030; J7620; Q0162; Q0163

== ENCOUNTER 2017-06-10 17:23 | Inpatient (IN) | payer MEDICARE, MEDICAID ==
[~2017-06-10] VITALS: Ht 165.1 cm; Wt 65.8 kg
[~2017-06-10 17:23] MED LIST changes: -ASOU OP; -DIFL5DRO OP; -FERR325T6 PO; -HYDR-523 PO; -HYDR100T26 PO; -METR250T4 PO; -REV20 PO; -VIT D2 PO
[2017-06-10 19:00] VITALS: BP 102/61
[2017-06-10 19:30] VITALS: BP 107/61
[2017-06-10 20:00] VITALS: BP 113/60
[2017-06-10 21:43] LABS: BASOPHILS % 0.3 % (0.0-2.0); EOSINOPHILS % 1.3 % (0.0-5.0); MEAN CORPUSCULAR HEMOGLOBIN 35.3 pg (28.0-32.0); MEAN CORPUSCULAR VOLUME 104.1 fL (81.0-99.0); MEAN PLATELET VOLUME 9.4 fl (7.4-10.4); MONOCYTES % 11.4 % (2.0-8.0); PLATELET 134 x1000/uL (130-400); RED BLOOD CELL COUNT 1.97 mill/uL (4.2-5.4); RED CELL DISTRIBUTION WIDTH 17.2 % (11.6-14.6)
[2017-06-10 21:51] LABS: HEMATOCRIT. 20.6 % (36.0-48.0)
[2017-06-10 22:01] LABS: CARBON DIOXIDE 33 mEq/L (21-32); CHLORIDE 103 mEq/L (98-107)
[2017-06-10 23:47] VITALS: BP 119/70
[2017-06-11] VITALS (13 sets, daily range): BP systolic 112–174; BP diastolic 58–84
[2017-06-11] MEDS ORDERED: METR250T4 PO
[2017-06-11] MEDS ORDERED: HYDR-523 PO (00:08)
[2017-06-11] MEDS ORDERED: HYDR100T26 PO ×2 (00:08→00:35)
[2017-06-11] MEDS ORDERED: VIT D2 PO (00:08)
[2017-06-11] MEDS ORDERED: DIFL5DRO OP (00:08)
[2017-06-11] MEDS ORDERED: ASOU OP (00:08)
[2017-06-11] MEDS ORDERED: FERR325T6 PO (00:08)
[2017-06-11] MEDS: HYDROCODONE/ACETAMINOPHEN 5/325MG TABLET PO PRN ×2 (02:31→11:46)
[2017-06-11] MEDS ORDERED: FUROSEMIDE 40MG/4ML VIAL IVP NR (03:00)
[2017-06-11] MEDS ORDERED: METRONIDAZOLE 250MG TABLET PO SCH (06:00)
[2017-06-11] MEDS: HYDRALAZINE HCL 100MG TABLET PO SCH ×2 (06:34→15:16)
[2017-06-11] MEDS ORDERED: MEDICATION NOT ON FORMULARY EA (Ferrous Sulfate 325 MG) PO SCH (09:00)
[2017-06-11] MEDS: FERROUS SULFATE 325MG TABLET PO SCH ×3 (09:16→18:31)
[2017-06-11 10:04] LABS: BASOPHILS % 0.2 % (0.0-2.0); EOSINOPHILS % 1.1 % (0.0-5.0); HEMATOCRIT. 28.9 % (36.0-48.0); HEMOGLOBIN. 9.7 g/dL (12.0-16.0); LYMPHOCYTES % 12.8 % (20.0-50.0); MEAN CORPUSCULAR HEMOGLOBIN 32.4 pg (28.0-32.0); MEAN CORPUSCULAR VOLUME 96.5 fL (81.0-99.0); MEAN PLATELET VOLUME 9.5 fl (7.4-10.4); MONOCYTES % 9.7 % (2.0-8.0); NEUTROPHILS % 76.2 % (40.0-76.0); PLATELET 137 x1000/uL (130-400); RED CELL DISTRIBUTION WIDTH 21.9 % (11.6-14.6)
[2017-06-11 10:20] LABS: CARBON DIOXIDE 30 mEq/L (21-32); CHLORIDE 102 mEq/L (98-107); TOTAL IRON BINDING CAPACITY 325 ug/dL (250-450)
[2017-06-11] MEDS ORDERED: FENTANYL CITRATE/PF 50MCG/ML 2ML VIAL ONE (12:24)
[2017-06-11] MEDS ORDERED: PHENYLEPHRINE HCL 10 MG/ML 1ML (IV VIAL) IV ONE (12:42)
[2017-06-11] MEDS ORDERED: ETOMIDATE 2MG/ML 10ML VIAL IV ONE (12:42)
[2017-06-11] MEDS ORDERED: HYDROMORPHONE HCL/PF 2MG/ML CPJ IV PRN (13:15)
[2017-06-11] MEDS ORDERED: ONDANSETRON HCL 4MG/2ML VIAL IV PRN (15:30)
[2017-06-11] MEDS ORDERED: DOCUSATE SODIUM 100MG CAPSULE PO PRN (15:30)
[2017-06-11] MEDS ORDERED: IPRATROPIUM/ALBUTEROL 0.5-3(2.5)MG/3ML NEB INH PRN (15:30)
[2017-06-11] MEDS ORDERED: MORPHINE SULFATE 2 MG/ML CPJ (NOT FOR IM USE) IV PRN (15:30)
[2017-06-11 18:01] LABS: CARBON DIOXIDE 30 mEq/L (21-32); CHLORIDE 103 mEq/L (98-107)
[2017-06-11] MEDS: SEVELAMER CARBONATE 800 MG TABLET PO SCH (18:31)
[2017-06-11] MEDS: PANTOPRAZOLE SODIUM 40 MG/VIAL IV SCH (18:34)
[2017-06-11] MEDS: MORPHINE SULFATE 4 MG/ML CPJ (NOT FOR IM USE) IV PRN (18:50)
[2017-06-11] MEDS: SILDENAFIL CITRATE 20MG TABLET PO SCH (21:25)
[2017-06-11] MEDS: SUCRALFATE 1 G/10 ML UDC PO SCH (21:25)
[2017-06-11] MEDS: AMLODIPINE 5MG TABLET PO SCH (21:26)
[2017-06-12] VITALS: BP 144/62
[2017-06-12 04:00] VITALS: BP 137/58
[2017-06-12] MEDS: SILDENAFIL CITRATE 20MG TABLET PO SCH ×3 (06:20→21:56)
[2017-06-12] MEDS: MORPHINE SULFATE 4 MG/ML CPJ (NOT FOR IM USE) IV PRN ×3 (06:22→21:47)
[2017-06-12] MEDS: SUCRALFATE 1 G/10 ML UDC PO SCH ×4 (06:25→21:56)
[2017-06-12 06:54] LABS: HEMATOCRIT. 26.2 % (36.0-48.0); HEMOGLOBIN. 8.7 g/dL (12.0-16.0); MEAN CORPUSCULAR HEMOGLOBIN 32.4 pg (28.0-32.0); MEAN CORPUSCULAR VOLUME 97.6 fL (81.0-99.0); MEAN PLATELET VOLUME 9.7 fl (7.4-10.4); PLATELET 124 x1000/uL (130-400); RED BLOOD CELL COUNT 2.68 mill/uL (4.2-5.4); RED CELL DISTRIBUTION WIDTH 21.5 % (11.6-14.6)
[2017-06-12 08:00] VITALS: BP 141/75
[2017-06-12] MEDS: FERROUS SULFATE 325MG TABLET PO SCH ×3 (08:09→16:59)
[2017-06-12] MEDS: SEVELAMER CARBONATE 800 MG TABLET PO SCH ×3 (08:11→16:59)
[2017-06-12] MEDS: FOLIC ACID/VITAMIN B COMP W-C TABLET PO SCH (08:12)
[2017-06-12] MEDS: AMLODIPINE 5MG TABLET PO SCH ×2 (09:00→21:56)
[2017-06-12] MEDS: PANTOPRAZOLE SODIUM 40 MG/VIAL IV SCH (09:30)
[2017-06-12 12:00] VITALS: BP 137/59
[2017-06-12 13:52] LABS: PLATELET ESTIMATE SLIGHTLY DECREASED
[2017-06-12 16:00] VITALS: BP 138/63
[2017-06-12] MEDS ORDERED: BISACODYL 5MG TABLET PO NR ×2 (16:00→20:00)
[2017-06-12] MEDS ORDERED: SORBITOL 70% SOLN 30ML PO NR ×2 (16:00→20:00)
[2017-06-12 20:00] VITALS: BP 150/94
[2017-06-12] MEDS ORDERED: EPOETIN ALFA 10000UNITS/ML VIAL SUBCUT SCH (21:00)
[2017-06-13] VITALS: BP 111/72
[2017-06-13 04:00] VITALS: BP 129/75
[2017-06-13] MEDS: SUCRALFATE 1 G/10 ML UDC PO SCH ×5 (06:42→22:34)
[2017-06-13] MEDS: SILDENAFIL CITRATE 20MG TABLET PO SCH ×3 (06:42→22:34)
[2017-06-13 06:49] LABS: INR 1.1; PARTIAL THROMBOPLASTIN TIME 24.2 sec (23.4-31.0); PROTHROMBIN TIME 10.9 sec (9.4-11.6)
[2017-06-13 06:55] LABS: BASOPHILS % 0.3 % (0.0-2.0); EOSINOPHILS % 1.3 % (0.0-5.0); HEMATOCRIT. 24.4 % (36.0-48.0); HEMOGLOBIN. 8.3 g/dL (12.0-16.0); LYMPHOCYTES % 19.7 % (20.0-50.0); MEAN CORPUSCULAR VOLUME 97.4 fL (81.0-99.0); MEAN PLATELET VOLUME 9.3 fl (7.4-10.4); MONOCYTES % 13.5 % (2.0-8.0); NEUTROPHILS % 65.2 % (40.0-76.0); PLATELET 111 x1000/uL (130-400); RED BLOOD CELL COUNT 2.51 mill/uL (4.2-5.4); RED CELL DISTRIBUTION WIDTH 21.3 % (11.6-14.6)
[2017-06-13 07:34] LABS: CARBON DIOXIDE 32 mEq/L (21-32); CHLORIDE 103 mEq/L (98-107)
[2017-06-13] MEDS: SEVELAMER CARBONATE 800 MG TABLET PO SCH ×3 (07:50→17:25)
[2017-06-13] MEDS: FERROUS SULFATE 325MG TABLET PO SCH ×3 (07:50→17:25)
[2017-06-13 08:00] VITALS: BP 121/55
[2017-06-13] MEDS: FOLIC ACID/VITAMIN B COMP W-C TABLET PO SCH (09:00)
[2017-06-13] MEDS: AMLODIPINE 5MG TABLET PO SCH ×2 (09:00→22:35)
[2017-06-13] MEDS: PANTOPRAZOLE SODIUM 40 MG/VIAL IV SCH (09:26)
[2017-06-13] MEDS: MORPHINE SULFATE 4 MG/ML CPJ (NOT FOR IM USE) IV PRN ×2 (10:31→22:35)
[2017-06-13] MEDS ORDERED: ONDANSETRON HCL 4MG/2ML VIAL IV PRN (10:45)
[2017-06-13 12:00] VITALS: BP 142/79
[2017-06-13] MEDS ORDERED: FENTANYL CITRATE/PF 50MCG/ML 2ML VIAL ONE (12:31)
[2017-06-13] MEDS ORDERED: MIDAZOLAM HCL 5 MG/5 ML VIAL ONE (12:32)
[2017-06-13] MEDS ORDERED: FENTANYL CITRATE/PF 50MCG/ML 2ML VIAL IV ONE (12:37)
[2017-06-13] MEDS ORDERED: SIMETHICONE 40 MG/0.6 ML 30ML ONE (13:57)
[2017-06-13] MEDS ORDERED: SODIUM CHLORIDE 0.9% 10ML VIAL ONE (13:57)
[2017-06-13] MEDS ORDERED: MIDAZOLAM HCL 5 MG/5 ML VIAL IV ONE (14:00)
[2017-06-13 16:00] VITALS: BP 114/72
[2017-06-13] MEDS: DUREZOL EYE OP PRN (17:25)
[2017-06-13 20:00] VITALS: BP 144/79
[2017-06-14] VITALS: BP 126/69
[2017-06-14 04:00] VITALS: BP 135/76
[2017-06-14] MEDS: SILDENAFIL CITRATE 20MG TABLET PO SCH ×2 (05:26→13:38)
[2017-06-14] MEDS: MORPHINE SULFATE 4 MG/ML CPJ (NOT FOR IM USE) IV PRN (05:32)
[2017-06-14] MEDS: SUCRALFATE 1 G/10 ML UDC PO SCH ×2 (05:34→11:52)
[2017-06-14 05:40] LABS: BASOPHILS % 0.3 % (0.0-2.0); EOSINOPHILS % 1.6 % (0.0-5.0); HEMATOCRIT. 24.9 % (36.0-48.0); HEMOGLOBIN. 8.2 g/dL (12.0-16.0); LYMPHOCYTES % 15.8 % (20.0-50.0); MEAN CORPUSCULAR HEMOGLOBIN 32.8 pg (28.0-32.0); MEAN CORPUSCULAR VOLUME 99.3 fL (81.0-99.0); MEAN PLATELET VOLUME 9.3 fl (7.4-10.4); MONOCYTES % 12.2 % (2.0-8.0); NEUTROPHILS % 70.1 % (40.0-76.0); PLATELET 107 x1000/uL (130-400); RED BLOOD CELL COUNT 2.51 mill/uL (4.2-5.4); RED CELL DISTRIBUTION WIDTH 21.3 % (11.6-14.6)
[2017-06-14] MEDS: FERROUS SULFATE 325MG TABLET PO SCH ×2 (07:50→11:50)
[2017-06-14] MEDS: SEVELAMER CARBONATE 800 MG TABLET PO SCH ×2 (07:50→11:50)
[2017-06-14 08:00] VITALS: BP 130/71
[2017-06-14] MEDS: PANTOPRAZOLE SODIUM 40 MG/VIAL IV SCH (08:03)
[2017-06-14] MEDS: FOLIC ACID/VITAMIN B COMP W-C TABLET PO SCH (08:03)
[2017-06-14] MEDS: DUREZOL EYE OP PRN (08:03)
[2017-06-14] MEDS: AMLODIPINE 5MG TABLET PO SCH (08:04)
[2017-06-14 10:43] LABS: CARBON DIOXIDE 30 mEq/L (21-32); CHLORIDE 103 mEq/L (98-107)
[2017-06-14] MEDS ORDERED: BARIUM SULFATE 450ML ORAL SUSP ONE (11:44)
[2017-06-14 12:00] VITALS: BP 130/71
[2017-06-14] MEDS ORDERED: REV20 PO (12:17)
[2017-06-14 15:50] VITALS: BP 130/71
== END 2017-06-14 16:20 | disposition home or self-care (01) | DRG 377 ==
LOC: 6EST 17:23
PROVIDERS: ADMIT Specialist; ATTEND Specialist
PROC: 30233N1 Transfusion of Nonautologous Red Blood Cells into Peripheral Vein, Percutaneous Approach (ICD-10-PCS; 2017-06-10)
PROC: 5A1D60Z (ICD-10-PCS; 2017-06-11)
PROC: 0DB68ZX Excision of Stomach, Via Natural or Artificial Opening Endoscopic, Diagnostic (ICD-10-PCS; 2017-06-13)
PROC: 0DB98ZX Excision of Duodenum, Via Natural or Artificial Opening Endoscopic, Diagnostic (ICD-10-PCS; 2017-06-13)
PROC: 0DBL8ZX Excision of Transverse Colon, Via Natural or Artificial Opening Endoscopic, Diagnostic (ICD-10-PCS; 2017-06-13)
PROC: 0DBM8ZZ Excision of Descending Colon, Via Natural or Artificial Opening Endoscopic (ICD-10-PCS; principal; 2017-06-13 15:00)
DX: K92.1 Melena (principal); J96.00 Acute respiratory failure, unspecified whether with hypoxia or hypercapnia; I50.33 Acute on chronic diastolic (congestive) heart failure; J84.9 Interstitial pulmonary disease, unspecified; I27.2 Other secondary pulmonary hypertension; N18.6 End stage renal disease; E44.1 Mild protein-calorie malnutrition; I13.2 Hypertensive heart and chronic kidney disease with heart failure and with stage 5 chronic kidney disease, or end stage renal disease; K29.60 Other gastritis without bleeding; K57.30 Diverticulosis of large intestine without perforation or abscess without bleeding; D63.1 Anemia in chronic kidney disease; B19.20 Unspecified viral hepatitis C without hepatic coma; H40.9 Unspecified glaucoma; D50.0 Iron deficiency anemia secondary to blood loss (chronic); K63.5 Polyp of colon; I25.10 Atherosclerotic heart disease of native coronary artery without angina pectoris; K21.0 Gastro-esophageal reflux disease with esophagitis; I73.9 Peripheral vascular disease, unspecified; K74.60 Unspecified cirrhosis of liver; J44.9 Chronic obstructive pulmonary disease, unspecified; Z99.2 Dependence on renal dialysis; I25.2 Old myocardial infarction; Z86.19 Personal history of other infectious and parasitic diseases; Z87.19 Personal history of other diseases of the digestive system; Z79.899 Other long term (current) drug therapy; Z68.24 Body mass index [BMI] 24.0-24.9, adult
CPT/HCPCS: 36415; 71010; 74246; 80048; 80053; 82270; 83540; 83550; 85025; 85610; 85730; 86850; 86900; 86920; 88305; 88312; 88313; 93005; 93970; 99152; 99153; A4216; C9113; J0885; J1170; J1940; J2250; J2270; J2370; J3010; J3490; J7040; P9016

== ENCOUNTER → 2017-06-10 | Outpatient (CLI) | payer MEDICARE, MEDICAID ==
[~2017-06-10] MED LIST changes: -ACET1TAB14 PO; +ASOU OP; +DIFL5DRO OP; -DIPH25CA83 PO; +FERR325T6 PO; +HYDR-523 PO; +HYDR100T26 PO; -ISOS1TAB PO; +METR250T4 PO; -OMEP20CA10 PO; +REV20 PO; +VIT D2 PO
== END | disposition home or self-care (01) ==
LOC: RAD 10:39
PROVIDERS: ATTEND Specialist
DX: R07.81 Pleurodynia (principal)
CPT/HCPCS: 71111

== ENCOUNTER 2017-06-21 08:59 | Emergency (ER) | payer MEDICARE, MEDICAID ==
[~2017-06-21] VITALS: Ht 160 cm; Wt 62.0 kg
[~2017-06-21 08:59] MED LIST changes: +DIFL5DRO OP; +FERR325T6 PO; -HYDR-4135 PO; +HYDR-523 PO; -LACTOBACILLUS RHAMNOSUS GG PO; -LOSA25TA3 PO; -METR250T PO; +REV20 PO; -[UNRECOGNIZED DRUG - OTHER] RIGHTEYE
[2017-06-21 09:59] LABS: HEMATOCRIT. 24.2 % (36.0-48.0); MEAN CORPUSCULAR VOLUME 103.4 fL (81.0-99.0); MEAN PLATELET VOLUME 10.1 fl (7.4-10.4); PLATELET 149 x1000/uL (130-400); RED BLOOD CELL COUNT 2.34 mill/uL (4.2-5.4)
[2017-06-21 10:07] LABS: PROTHROMBIN TIME 10.7 sec (9.4-11.6)
[2017-06-21 10:13] LABS: CARBON DIOXIDE 31 mEq/L (21-32); CHLORIDE 109 mEq/L (98-107)
[2017-06-21 11:10] LABS: PLATELET ESTIMATE NORMAL
[2017-06-21 15:12] VITALS: BP 140/81
== END 2017-06-21 15:16 | disposition home or self-care (01) ==
LOC: ER 08:59 → CANRESERV 11:44 → ENRESERV 11:44 → ER 15:16 → CANBEDREQ 16:07
DX: D64.9 Anemia, unspecified (principal); N18.6 End stage renal disease; I12.0 Hypertensive chronic kidney disease with stage 5 chronic kidney disease or end stage renal disease; D72.819 Decreased white blood cell count, unspecified; Z99.2 Dependence on renal dialysis
CPT/HCPCS: 36415; 36430; 80053; 85025; 85610; 86850; 86900; 86901; 86920; 93005; 99285; J7050; P9016

== ENCOUNTER 2017-09-17 12:14 | Emergency (ER) | payer MEDICARE, MEDICAID ==
[~2017-09-17] VITALS: Ht 162.6 cm; Wt 65.0 kg
[2017-09-17 13:11] VITALS: BP 154/101
== END 2017-09-17 18:56 | disposition left against medical advice (07) ==
LOC: ER 12:14
DX: R10.9 Unspecified abdominal pain (principal); R11.2 Nausea with vomiting, unspecified; Z53.21 Procedure and treatment not carried out due to patient leaving prior to being seen by health care provider

== ENCOUNTER → 2018-05-02 | Outpatient (CLI) | payer MEDICARE, MEDICAID | END | disposition home or self-care (01) | LOC: RAD 10:40 | PROVIDERS: ATTEND Specialist | DX: Z01.818 Encounter for other preprocedural examination (principal); I12.0 Hypertensive chronic kidney disease with stage 5 chronic kidney disease or end stage renal disease; N18.6 End stage renal disease; R06.02 Shortness of breath | CPT/HCPCS: 71046 ==

== ENCOUNTER 2018-06-24 18:13 | Inpatient (IN) | payer MEDICARE, MEDICAID ==
[~2018-06-24] VITALS: Ht 160 cm; Wt 59.9 kg
[2018-06-24 22:27] LABS: BASOPHILS % 0.8 % (0.0-2.0); EOSINOPHILS % 1.6 % (0.0-5.0); HEMATOCRIT. 23.6 % (36.0-48.0); HEMOGLOBIN. 7.5 g/dL (12.0-16.0); LYMPHOCYTES % 32.1 % (20.0-50.0); MEAN CORPUSCULAR HEMOGLOBIN 31.4 pg (28.0-32.0); MEAN CORPUSCULAR VOLUME 98.8 fL (81.0-99.0); MEAN PLATELET VOLUME 8.7 fl (7.4-10.4); NEUTROPHILS % 53.5 % (40.0-76.0); PLATELET 136 x1000/uL (130-400); RED BLOOD CELL COUNT 2.38 mill/uL (4.2-5.4); RED CELL DISTRIBUTION WIDTH 19.2 % (11.6-14.6)
[2018-06-24 22:31] LABS: CHLORIDE 107 mEq/L (98-107)
[2018-06-24 22:38] LABS: INR 1.1; PARTIAL THROMBOPLASTIN TIME 24.7 sec (23.4-31.0); PROTHROMBIN TIME 11.1 sec (9.1-11.1)
[2018-06-25] VITALS (11 sets, daily range): BP systolic 132–171; BP diastolic 58–95
[2018-06-25] MEDS ORDERED: ACETAMINOPHEN 325MG TABLET PO PRN
[2018-06-25] MEDS ORDERED: DOCUSATE SODIUM 100MG CAPSULE PO PRN
[2018-06-25] MEDS ORDERED: MAGNESIUM/ALUMINUM HYDROXIDE/SIMETHICONE 30ML UDC PO PRN
[2018-06-25] MEDS ORDERED: CLONIDINE 0.1MG TABLET PO PRN
[2018-06-25] MEDS ORDERED: ONDANSETRON HCL 4MG/2ML INJ IV PRN
[2018-06-25 02:11] LABS: TOTAL IRON BINDING CAPACITY 273 ug/dL (250-450)
[2018-06-25] MEDS ORDERED: SODIUM CHLORIDE 0.9% 1,000 ML IV SCH (04:00)
[2018-06-25] MEDS ORDERED: SILDENAFIL CITRATE 20MG TABLET PO SCH (10:30)
[2018-06-25] MEDS: SILDENAFIL CITRATE 20MG TABLET PO SCH ×2 (12:50→21:56)
[2018-06-25] MEDS: DEXT 5%/0.45% NACL 1000ML 1,000 ML IV SCH (12:51)
[2018-06-25 13:21] LABS: HEMATOCRIT 25.5 % (36.0-48.0); HEMOGLOBIN 8.2 g/dL (12.0-16.0); MEAN CORPUSCULAR VOLUME 96.6 fL (81.0-99.0); PLATELET 119 x1000/uL (130-400); RED BLOOD CELL COUNT 2.64 mill/uL (4.2-5.4); RED CELL DISTRIBUTION WIDTH 19.1 % (11.6-14.6)
[2018-06-25 13:28] LABS: INR 1.1; PARTIAL THROMBOPLASTIN TIME 26.2 sec (23.4-31.0); PROTHROMBIN TIME 11.2 sec (9.1-11.1)
[2018-06-25] MEDS: PREDNISOLONE ACETATE 1% OPHTH DROPS 1ML RIGHTEYE SCH ×3 (13:33→21:56)
[2018-06-25] MEDS: FERROUS SULFATE 325MG TABLET PO SCH ×2 (13:33→17:10)
[2018-06-25 13:42] LABS: CHLORIDE 109 mEq/L (98-107)
[2018-06-25] MEDS: LOSARTAN POTASSIUM 25 MG TABLET PO SCH (15:14)
[2018-06-25] MEDS ORDERED: EPOETIN ALFA 10000UNITS/ML VIAL SUBCUT NR (21:00)
[2018-06-25] MEDS: AMLODIPINE 5MG TABLET PO SCH (21:55)
[2018-06-26] VITALS: BP 118/67
[2018-06-26 04:00] VITALS: BP 124/58
[2018-06-26] MEDS: SILDENAFIL CITRATE 20MG TABLET PO SCH (06:27)
[2018-06-26 07:17] LABS: HEMATOCRIT 30.8 % (36.0-48.0); HEMOGLOBIN 10.2 g/dL (12.0-16.0); MEAN CORPUSCULAR HEMOGLOBIN 30.4 pg (28.0-32.0); MEAN CORPUSCULAR VOLUME 91.1 fL (81.0-99.0); PLATELET 130 x1000/uL (130-400); RED BLOOD CELL COUNT 3.37 mill/uL (4.2-5.4); RED CELL DISTRIBUTION WIDTH 20.4 % (11.6-14.6)
[2018-06-26] MEDS: FERROUS SULFATE 325MG TABLET PO SCH (07:50)
[2018-06-26] MEDS: DEXT 5%/0.45% NACL 1000ML 1,000 ML IV SCH (08:00)
[2018-06-26] MEDS: AMLODIPINE 5MG TABLET PO SCH (08:31)
[2018-06-26] MEDS: LOSARTAN POTASSIUM 25 MG TABLET PO SCH (08:35)
[2018-06-26] MEDS ORDERED: FOLIC ACID/VITAMIN B COMP W-C TABLET PO SCH (09:00)
[2018-06-26 09:08] LABS: INR 1.1; PROTHROMBIN TIME 11.3 sec (9.1-11.1)
[2018-06-26] MEDS: PREDNISOLONE ACETATE 1% OPHTH DROPS 1ML RIGHTEYE SCH (09:17)
[2018-06-26 11:36] VITALS: BP 78/75
== END 2018-06-26 11:50 | disposition home or self-care (01) | DRG 811 ==
LOC: EDUNIT# 18:13 → ER 18:13 → 6WST 06-25 → EDBEDREQTM 06-25 00:06 → EDBEDREQ 06-25 00:06 → ENRESERV 06-25 02:15
PROVIDERS: ADMIT Family Medicine Adult Medicine; ATTEND Family Medicine Adult Medicine
PROC: 30233N1 Transfusion of Nonautologous Red Blood Cells into Peripheral Vein, Percutaneous Approach (ICD-10-PCS; principal; 2018-06-25)
PROC: 5A1D70Z Performance of Urinary Filtration, Intermittent, Less than 6 Hours Per Day (ICD-10-PCS; 2018-06-25)
DX: D50.9 Iron deficiency anemia, unspecified (principal); N18.6 End stage renal disease; I13.2 Hypertensive heart and chronic kidney disease with heart failure and with stage 5 chronic kidney disease, or end stage renal disease; F17.200 Nicotine dependence, unspecified, uncomplicated; R63.4 Abnormal weight loss; I27.20 Pulmonary hypertension, unspecified; I50.9 Heart failure, unspecified; Z82.49 Family history of ischemic heart disease and other diseases of the circulatory system; Z99.2 Dependence on renal dialysis; Z86.19 Personal history of other infectious and parasitic diseases; Z68.23 Body mass index [BMI] 23.0-23.9, adult
CPT/HCPCS: 36415; 36430; 74176; 80048; 83540; 83550; 84484; 85027; 85044; 85384; 86850; 86900; 86920; 96360; 96361; 99285; J0885; J3490; J7030; J7050; P9016

== ENCOUNTER 2018-07-25 12:50 | Emergency (ER) | payer MEDICARE, MEDICAID ==
[~2018-07-25] VITALS: Ht 157.5 cm; Wt 60.4 kg
[2018-07-25 14:08] LABS: HEMATOCRIT. 23.1 % (36.0-48.0); HEMOGLOBIN. 7.6 g/dL (12.0-16.0); MEAN CORPUSCULAR HEMOGLOBIN 33.9 pg (28.0-32.0); MEAN CORPUSCULAR VOLUME 102.9 fL (81.0-99.0); MEAN PLATELET VOLUME 8.3 fl (7.4-10.4); PLATELET 131 x1000/uL (130-400); RED BLOOD CELL COUNT 2.25 mill/uL (4.2-5.4); RED CELL DISTRIBUTION WIDTH 18.4 % (11.6-14.6)
[2018-07-25 14:15] LABS: CHLORIDE 101 mEq/L (98-107)
[2018-07-25 14:24] LABS: PLATELET ESTIMATE NORMAL
[2018-07-25 16:42] VITALS: BP 124/55
== END 2018-07-25 16:43 | disposition left against medical advice (07) ==
LOC: ER 15:47
DX: D64.9 Anemia, unspecified (principal); I12.0 Hypertensive chronic kidney disease with stage 5 chronic kidney disease or end stage renal disease; N18.6 End stage renal disease; F17.200 Nicotine dependence, unspecified, uncomplicated; Z98.890 Other specified postprocedural states; Z79.899 Other long term (current) drug therapy
CPT/HCPCS: 36415; 86850; 86900; 99284

== ENCOUNTER 2018-08-04 10:35 | Inpatient (IN) | payer MEDICARE, MEDICAID ==
[~2018-08-04] VITALS: Ht 162.6 cm; Wt 63.5 kg
[2018-08-04 12:57] LABS: BASOPHILS % 0.2 % (0.0-2.0); EOSINOPHILS % 1.4 % (0.0-5.0); HEMOGLOBIN. 7.4 g/dL (12.0-16.0); LYMPHOCYTES % 24.8 % (20.0-50.0); MEAN CORPUSCULAR HEMOGLOBIN 32.9 pg (28.0-32.0); MEAN CORPUSCULAR VOLUME 102.2 fL (81.0-99.0); MEAN PLATELET VOLUME 8.1 fl (7.4-10.4); MONOCYTES % 14.5 % (2.0-8.0); NEUTROPHILS % 59.1 % (40.0-76.0); PLATELET 121 x1000/uL (130-400); RED BLOOD CELL COUNT 2.25 mill/uL (4.2-5.4); RED CELL DISTRIBUTION WIDTH 18.1 % (11.6-14.6)
[2018-08-04 13:04] LABS: CHLORIDE 105 mEq/L (98-107)
[2018-08-04 16:01] LABS: T4 FREE 1.11 ng/dL (0.76-1.46)
[2018-08-04 17:14] VITALS: BP 145/71
[2018-08-04] MEDS ORDERED: HYDR100T26 PO (18:03)
[2018-08-04 18:04] VITALS: BP 145/71
[2018-08-04] MEDS ORDERED: SEVE800T8 MT (18:14)
[2018-08-04] MEDS ORDERED: OLOP5DRO14 LEFTEYE (18:14)
[2018-08-04] MEDS ORDERED: CALC667T5 MT (18:14)
[2018-08-04] MEDS ORDERED: OMEP10CA4 MT (18:14)
[2018-08-04] MEDS ORDERED: MACI10TA2 MT (18:14)
[2018-08-04] MEDS ORDERED: HYDR1LIQ5 PO (18:14)
[2018-08-04] MEDS ORDERED: FENT1PAT4 TP (18:14)
[2018-08-04] MEDS ORDERED: OMEP20TA2 MT (18:14)
[2018-08-04 18:43] LABS: FOLIC ACID (FOLATE) SERUM 11.9 ng/mL (>5.38)
[2018-08-04 20:00] VITALS: BP 130/62
[2018-08-04] MEDS: AMLODIPINE 5MG TABLET PO SCH (21:30)
[2018-08-04] MEDS: HYDROMORPHONE HCL 2MG TABLET PO SCH (21:31)
[2018-08-04] MEDS: NAPHAZOLINE HCL/PHENIR MAL OPHTH SOLN 15ML LEFTEYE SCH (21:55)
[2018-08-05] VITALS (10 sets, daily range): BP systolic 119–149; BP diastolic 63–77
[2018-08-05] MEDS: OMEPRAZOLE 20MG CAPSULE EXTENDED RELEASE PO SCH (06:18)
[2018-08-05 07:26] LABS: BASOPHILS % 0.3 % (0.0-2.0); EOSINOPHILS % 1.6 % (0.0-5.0); HEMATOCRIT. 22.3 % (36.0-48.0); HEMOGLOBIN. 7.1 g/dL (12.0-16.0); LYMPHOCYTES % 29.5 % (20.0-50.0); MEAN CORPUSCULAR HEMOGLOBIN 32.8 pg (28.0-32.0); MEAN CORPUSCULAR VOLUME 102.9 fL (81.0-99.0); MEAN PLATELET VOLUME 8.7 fl (7.4-10.4); MONOCYTES % 12.6 % (2.0-8.0); PLATELET 116 x1000/uL (130-400); RED BLOOD CELL COUNT 2.17 mill/uL (4.2-5.4); RED CELL DISTRIBUTION WIDTH 18.6 % (11.6-14.6)
[2018-08-05 07:39] LABS: CHLORIDE 105 mEq/L (98-107)
[2018-08-05] MEDS: AMLODIPINE 5MG TABLET PO SCH ×2 (09:29→21:00)
[2018-08-05] MEDS: SEVELAMER CARBONATE 800 MG TABLET PO SCH ×3 (09:30→18:13)
[2018-08-05] MEDS: NAPHAZOLINE HCL/PHENIR MAL OPHTH SOLN 15ML LEFTEYE SCH ×2 (09:30→21:24)
[2018-08-05] MEDS: CALCIUM ACETATE 667MG CAPSULE PO SCH ×3 (09:30→18:13)
[2018-08-05] MEDS: HYDRALAZINE HCL 100MG TABLET PO SCH (09:31)
[2018-08-05] MEDS: HYDROMORPHONE HCL 2MG TABLET PO SCH ×4 (09:32→21:23)
[2018-08-05] MEDS: DOCUSATE SODIUM 100MG CAPSULE PO SCH (13:45)
[2018-08-05] MEDS: FERROUS SULFATE 325MG TABLET PO SCH (18:13)
[2018-08-05] MEDS: MACITENTAN 10 MG PO SCH (18:30)
[2018-08-05] MEDS ORDERED: EPOETIN ALFA 10000UNITS/ML VIAL SUBCUT NR (21:00)
[2018-08-06] VITALS: BP 150/84
[2018-08-06 04:00] VITALS: BP 139/60
[2018-08-06 06:23] LABS: BASOPHILS % 0.2 % (0.0-2.0); EOSINOPHILS % 0.4 % (0.0-5.0); HEMATOCRIT. 24.5 % (36.0-48.0); LYMPHOCYTES % 10.9 % (20.0-50.0); MEAN CORPUSCULAR HEMOGLOBIN 32.7 pg (28.0-32.0); MEAN PLATELET VOLUME 8.6 fl (7.4-10.4); NEUTROPHILS % 75.5 % (40.0-76.0); PLATELET 97 x1000/uL (130-400); RED BLOOD CELL COUNT 2.45 mill/uL (4.2-5.4); RED CELL DISTRIBUTION WIDTH 18.2 % (11.6-14.6)
[2018-08-06] MEDS: OMEPRAZOLE 20MG CAPSULE EXTENDED RELEASE PO SCH (06:41)
[2018-08-06 08:00] VITALS: BP 134/66
[2018-08-06] MEDS: SEVELAMER CARBONATE 800 MG TABLET PO SCH (08:31)
[2018-08-06] MEDS: DOCUSATE SODIUM 100MG CAPSULE PO SCH (08:32)
[2018-08-06] MEDS: CALCIUM ACETATE 667MG CAPSULE PO SCH (08:32)
[2018-08-06] MEDS: FERROUS SULFATE 325MG TABLET PO SCH (08:33)
[2018-08-06] MEDS: MACITENTAN 10 MG PO SCH (08:33)
[2018-08-06] MEDS: AMLODIPINE 5MG TABLET PO SCH (08:33)
[2018-08-06] MEDS: HYDRALAZINE HCL 100MG TABLET PO SCH (08:33)
[2018-08-06] MEDS: HYDROMORPHONE HCL 2MG TABLET PO SCH (08:33)
[2018-08-06] MEDS: NAPHAZOLINE HCL/PHENIR MAL OPHTH SOLN 15ML LEFTEYE SCH (08:34)
[2018-08-06 10:21] VITALS: BP 134/66
[2018-08-07] MEDS ORDERED: FENTANYL 75MCG/HR PATCH TOP SCH
[2018-08-07] MEDS ORDERED: FENTANYL TP SCH (09:00)
[2018-08-07 09:06] LABS: IMMUNOGLOBULIN A 179 mg/dL (64-422); IMMUNOGLOBULIN G 2622 mg/dL (700-1600); IMMUNOGLOBULIN M 13 mg/dL (26-217)
== END 2018-08-06 11:37 | disposition home or self-care (01) | DRG 811 ==
LOC: ER 10:35 → 6WST 13:55 → ENRESERV 14:48
PROVIDERS: ADMIT Specialist; ATTEND Specialist
PROC: 30233N1 Transfusion of Nonautologous Red Blood Cells into Peripheral Vein, Percutaneous Approach (ICD-10-PCS; principal; 2018-08-05)
PROC: 5A1D70Z Performance of Urinary Filtration, Intermittent, Less than 6 Hours Per Day (ICD-10-PCS; 2018-08-06)
DX: D50.9 Iron deficiency anemia, unspecified (principal); N18.6 End stage renal disease; E43 Unspecified severe protein-calorie malnutrition; I13.2 Hypertensive heart and chronic kidney disease with heart failure and with stage 5 chronic kidney disease, or end stage renal disease; D61.818 Other pancytopenia; B19.20 Unspecified viral hepatitis C without hepatic coma; I50.9 Heart failure, unspecified; D53.9 Nutritional anemia, unspecified; D63.1 Anemia in chronic kidney disease; I25.10 Atherosclerotic heart disease of native coronary artery without angina pectoris; I27.20 Pulmonary hypertension, unspecified; K57.30 Diverticulosis of large intestine without perforation or abscess without bleeding; N28.1 Cyst of kidney, acquired; K74.60 Unspecified cirrhosis of liver; F17.210 Nicotine dependence, cigarettes, uncomplicated; K80.20 Calculus of gallbladder without cholecystitis without obstruction; K29.70 Gastritis, unspecified, without bleeding; R16.1 Splenomegaly, not elsewhere classified; J44.9 Chronic obstructive pulmonary disease, unspecified; E88.09 Other disorders of plasma-protein metabolism, not elsewhere classified; Z99.2 Dependence on renal dialysis; I25.2 Old myocardial infarction; Z82.49 Family history of ischemic heart disease and other diseases of the circulatory system; Z79.899 Other long term (current) drug therapy; Z71.6 Tobacco abuse counseling; Z68.24 Body mass index [BMI] 24.0-24.9, adult
CPT/HCPCS: 36415; 71045; 80048; 80076; 82140; 82270; 82607; 82728; 82746; 82784; 83540; 83550; 83735; 84439; 84443; 84481; 85044; 85651; 86334; 86340; 86850; 86900; 86920; 93005; 93306; 99285; J0885; J7050; P9016

== ENCOUNTER 2018-08-26 19:24 | Inpatient (IN) | payer MEDICARE, MEDICAID ==
[~2018-08-26] VITALS: Ht 160 cm; Wt 59.9 kg
[~2018-08-26 19:24] MED LIST changes: +CALC667T5 MT; +FENT1PAT4 TP; +HYDR100T26 PO; +HYDR1LIQ5 PO; +MACI10TA2 MT; +OLOP5DRO14 LEFTEYE; +OMEP10CA4 MT; +OMEP20TA2 MT; +SEVE800T8 MT
[2018-08-26] MEDS ORDERED: ZOLPIDEM TARTRATE 5MG TABLET PO PRN (21:00)
[2018-08-26 21:29] LABS: CHLORIDE 103 mEq/L (98-107)
[2018-08-26 21:30] LABS: INR 1.2; PROTHROMBIN TIME 12.1 sec (9.1-11.1)
[2018-08-26] MEDS ORDERED: ACETAMINOPHEN 325MG TABLET PO ONE (21:30)
[2018-08-26 21:34] LABS: BASOPHILS % 0.3 % (0.0-2.0); EOSINOPHILS % 0.7 % (0.0-5.0); HEMATOCRIT. 27.9 % (36.0-48.0); HEMOGLOBIN. 8.5 g/dL (12.0-16.0); LYMPHOCYTES % 30.7 % (20.0-50.0); MEAN CORPUSCULAR HEMOGLOBIN 30.2 pg (28.0-32.0); MEAN CORPUSCULAR VOLUME 99.1 fL (81.0-99.0); MEAN PLATELET VOLUME 9.3 fl (7.4-10.4); MONOCYTES % 13.9 % (2.0-8.0); NEUTROPHILS % 54.4 % (40.0-76.0); PLATELET 118 x1000/uL (130-400); RED BLOOD CELL COUNT 2.81 mill/uL (4.2-5.4); RED CELL DISTRIBUTION WIDTH 18.9 % (11.6-14.6)
[2018-08-26] MEDS ORDERED: FUROSEMIDE 100MG/10ML VIAL IV STA (21:40)
[2018-08-26] MEDS ORDERED: INSULIN REGULAR (HUMULIN R) 300UNITS/3ML IV ONE (21:45)
[2018-08-26] MEDS ORDERED: DEXTROSE 50% WATER 50ML SYRINGE IV ONE (21:45)
[2018-08-26] MEDS ORDERED: ALBUTEROL (0.083%) 2.5MG/3ML NEB HHN ONE (21:45)
[2018-08-26] MEDS ORDERED: SODIUM BICARBONATE 8.4% 1 MEQ/ML 50ML SYR IV ONE (21:45)
[2018-08-26] MEDS ORDERED: ALBUTEROL (0.5%) 2.5MG/0.5ML NEB HHN ONE (21:56)
[2018-08-26] MEDS ORDERED: CALCIUM CHLORIDE 1GM/10ML SYR IV ONE (22:00)
[2018-08-26] MEDS ORDERED: ONDANSETRON HCL 4MG/2ML INJ IV PRN (23:00)
[2018-08-26] MEDS ORDERED: PANTOPRAZOLE SODIUM 40 MG/VIAL IV SCH (23:00)
[2018-08-26] MEDS ORDERED: CLONIDINE 0.1MG TABLET PO PRN (23:00)
[2018-08-26] MEDS ORDERED: MAGNESIUM/ALUMINUM HYDROXIDE/SIMETHICONE 30ML UDC PO PRN (23:00)
[2018-08-26] MEDS ORDERED: ACETAMINOPHEN 325MG TABLET PO PRN (23:00)
[2018-08-26] MEDS ORDERED: IPRATROPIUM/ALBUTEROL 0.5-3(2.5)MG/3ML NEB INH PRN (23:00)
[2018-08-27 01:22] VITALS: BP_SYST 140; BP_SYST 144; BP_DIAS 40; BP_DIAS 44
[2018-08-27] MEDS ORDERED: MAGNESIUM/ALUMINUM HYDROXIDE/SIMETHICONE 30ML UDC PO PRN (02:30)
[2018-08-27] MEDS ORDERED: ZOLPIDEM TARTRATE 5MG TABLET PO PRN (02:30)
[2018-08-27] MEDS ORDERED: ACETAMINOPHEN 325MG TABLET PO PRN (02:30)
[2018-08-27] MEDS ORDERED: IPRATROPIUM/ALBUTEROL 0.5-3(2.5)MG/3ML NEB INH PRN (02:30)
[2018-08-27] MEDS ORDERED: ONDANSETRON HCL 4MG/2ML INJ IV PRN (02:30)
[2018-08-27] MEDS ORDERED: CLONIDINE 0.1MG TABLET PO PRN (02:30)
[2018-08-27 04:00] VITALS: BP 137/62
[2018-08-27 07:30] VITALS: BP 148/55
[2018-08-27] MEDS: PANTOPRAZOLE SODIUM 40 MG/VIAL IV SCH (09:37)
[2018-08-27 10:59] LABS: BASOPHILS % 0.3 % (0.0-2.0); EOSINOPHILS % 1.3 % (0.0-5.0); HEMATOCRIT. 27.1 % (36.0-48.0); HEMOGLOBIN. 8.5 g/dL (12.0-16.0); LYMPHOCYTES % 30.9 % (20.0-50.0); MEAN CORPUSCULAR HEMOGLOBIN 30.3 pg (28.0-32.0); MEAN CORPUSCULAR VOLUME 96.2 fL (81.0-99.0); MEAN PLATELET VOLUME 9.1 fl (7.4-10.4); MONOCYTES % 11.6 % (2.0-8.0); NEUTROPHILS % 55.9 % (40.0-76.0); PLATELET 107 x1000/uL (130-400); RED BLOOD CELL COUNT 2.82 mill/uL (4.2-5.4); RED CELL DISTRIBUTION WIDTH 18.2 % (11.6-14.6)
[2018-08-27 11:17] LABS: CHLORIDE 100 mEq/L (98-107)
[2018-08-27 11:24] LABS: PHOSPHORUS 4.1 mg/dL (2.5-4.9)
[2018-08-27 12:23] VITALS: BP 139/59
[2018-08-27] MEDS: PREDNISOLONE ACETATE 1% OPHTH DROPS 1ML RIGHTEYE SCH ×3 (13:15→21:04)
[2018-08-27] MEDS ORDERED: HYDROCODONE/ACETAMINOPHEN 5/325MG TABLET PO PRN (13:15)
[2018-08-27] MEDS: SILDENAFIL CITRATE 20MG TABLET PO SCH ×2 (14:40→21:04)
[2018-08-27] MEDS: AMLODIPINE 5MG TABLET PO SCH (14:41)
[2018-08-27 16:03] VITALS: BP 133/61
[2018-08-27 20:00] VITALS: BP 115/45
[2018-08-28] VITALS: BP 120/53
[2018-08-28 04:00] VITALS: BP 143/56
[2018-08-28] MEDS: SILDENAFIL CITRATE 20MG TABLET PO SCH (05:38)
[2018-08-28 06:54] LABS: BASOPHILS % 0.3 % (0.0-2.0); EOSINOPHILS % 0.9 % (0.0-5.0); HEMATOCRIT. 27.2 % (36.0-48.0); HEMOGLOBIN. 8.7 g/dL (12.0-16.0); LYMPHOCYTES % 31.7 % (20.0-50.0); MEAN CORPUSCULAR HEMOGLOBIN 30.9 pg (28.0-32.0); MONOCYTES % 12.2 % (2.0-8.0); NEUTROPHILS % 54.9 % (40.0-76.0); PLATELET 109 x1000/uL (130-400); RED BLOOD CELL COUNT 2.83 mill/uL (4.2-5.4); RED CELL DISTRIBUTION WIDTH 18.2 % (11.6-14.6)
[2018-08-28 07:03] LABS: PHOSPHORUS 5.4 mg/dL (2.5-4.9)
[2018-08-28 08:00] VITALS: BP 132/62
[2018-08-28] MEDS: PREDNISOLONE ACETATE 1% OPHTH DROPS 1ML RIGHTEYE SCH ×2 (08:11→13:21)
[2018-08-28] MEDS: PANTOPRAZOLE SODIUM 40 MG/VIAL IV SCH (08:11)
[2018-08-28] MEDS: AMLODIPINE 5MG TABLET PO SCH (08:11)
[2018-08-28] MEDS ORDERED: FOLIC ACID/VITAMIN B COMP W-C TABLET PO SCH (09:00)
[2018-08-28] MEDS ORDERED: HYDRALAZINE HCL 100MG TABLET PO SCH (09:00)
[2018-08-28 12:00] VITALS: BP 137/74
[2018-08-28 14:04] VITALS: BP 137/74
== END 2018-08-28 15:00 | disposition home or self-care (01) | DRG 377 ==
LOC: ER 19:24 → EDBEDREQ 22:18 → ENRESERV 23:54 → 8WST 08-27 02:00
PROVIDERS: ADMIT Family Medicine Adult Medicine; ATTEND Family Medicine Adult Medicine
PROC: 5A1D70Z Performance of Urinary Filtration, Intermittent, Less than 6 Hours Per Day (ICD-10-PCS; principal; 2018-08-27)
DX: K57.91 Diverticulosis of intestine, part unspecified, without perforation or abscess with bleeding (principal); N18.6 End stage renal disease; I13.2 Hypertensive heart and chronic kidney disease with heart failure and with stage 5 chronic kidney disease, or end stage renal disease; I50.32 Chronic diastolic (congestive) heart failure; E87.5 Hyperkalemia; R00.1 Bradycardia, unspecified; R10.9 Unspecified abdominal pain; Z53.29 Procedure and treatment not carried out because of patient's decision for other reasons; B19.20 Unspecified viral hepatitis C without hepatic coma; K80.20 Calculus of gallbladder without cholecystitis without obstruction; I27.20 Pulmonary hypertension, unspecified; D63.1 Anemia in chronic kidney disease; F17.210 Nicotine dependence, cigarettes, uncomplicated; K21.9 Gastro-esophageal reflux disease without esophagitis; Z82.49 Family history of ischemic heart disease and other diseases of the circulatory system; Z91.15 Patient's noncompliance with renal dialysis; Z99.2 Dependence on renal dialysis
CPT/HCPCS: 36415; 71045; 80048; 80076; 82962; 83735; 84100; 84484; 86850; 86900; 93005; 96374; 96375; 99291; C9113; J1815; J1940; J3490; J7611

== ENCOUNTER 2018-09-02 13:37 | Inpatient (IN) | payer MEDICARE, MEDICAID ==
[~2018-09-02] VITALS: Ht 160 cm; Wt 64.0 kg
[~2018-09-02 13:37] MED LIST changes: -CALC667C PO; -SEVE800T8 PO
[2018-09-02] MEDS ORDERED: PANTOPRAZOLE SODIUM 40 MG/VIAL IV STA (14:48)
[2018-09-02] MEDS ORDERED: ONDANSETRON HCL 4MG/2ML INJ IV STA (14:48)
[2018-09-02] MEDS ORDERED: FAMOTIDINE 20MG/2ML VIAL IV STA (14:48)
[2018-09-02] MEDS ORDERED: FENTANYL CITRATE/PF 50MCG/ML 2ML VIAL IV ONE (15:30)
[2018-09-02 16:09] LABS: HEMATOCRIT. 24.5 % (36.0-48.0); HEMOGLOBIN. 7.7 g/dL (12.0-16.0); MEAN CORPUSCULAR HEMOGLOBIN 30.8 pg (28.0-32.0); MEAN CORPUSCULAR VOLUME 97.9 fL (81.0-99.0); MEAN PLATELET VOLUME 9.6 fl (7.4-10.4); PLATELET 175 x1000/uL (130-400); RED CELL DISTRIBUTION WIDTH 18.3 % (11.6-14.6)
[2018-09-02 16:16] LABS: CHLORIDE 103 mEq/L (98-107)
[2018-09-02 16:18] LABS: INR 1.1; PARTIAL THROMBOPLASTIN TIME 22.4 sec (23.4-31.0); PROTHROMBIN TIME 11.2 sec (9.1-11.1)
[2018-09-02 16:24] LABS: TOTAL IRON BINDING CAPACITY 331 ug/dL (250-450)
[2018-09-02 16:54] LABS: NUCLEATED RED BLOOD CELLS 1 /100 WBC; PLATELET ESTIMATE NORMAL
[2018-09-02 23:12] VITALS: BP 146/60
[2018-09-03] VITALS (19 sets, daily range): BP systolic 109–181; BP diastolic 45–81
[2018-09-03 01:24] LABS: HEMATOCRIT 21.1 % (36.0-48.0)
[2018-09-03 01:30] LABS: HEMOGLOBIN 6.5 g/dL (12.0-16.0)
[2018-09-03] MEDS ORDERED: HYDROMORPHONE HCL/PF 2MG/ML CPJ IV PRN (02:15)
[2018-09-03] MEDS ORDERED: ONDANSETRON HCL 4MG/2ML INJ IV PRN (02:15)
[2018-09-03] MEDS: HYDRALAZINE HCL 100MG TABLET PO SCH ×3 (06:45→21:27)
[2018-09-03] MEDS: SILDENAFIL CITRATE 20MG TABLET PO SCH ×3 (06:45→21:27)
[2018-09-03] MEDS ORDERED: PANTOPRAZOLE 40MG DR TABLET PO SCH (07:20)
[2018-09-03] MEDS: FERROUS SULFATE 325MG TABLET PO SCH ×3 (08:07→18:00)
[2018-09-03] MEDS: AMLODIPINE 5MG TABLET PO SCH ×2 (08:07→20:12)
[2018-09-03] MEDS: CALCIUM ACETATE 667MG CAPSULE PO SCH ×3 (08:07→18:00)
[2018-09-03] MEDS: FOLIC ACID/VITAMIN B COMP W-C TABLET PO SCH (08:07)
[2018-09-03] MEDS: PANTOPRAZOLE SODIUM 40 MG/VIAL IV SCH (08:07)
[2018-09-03] MEDS: PREDNISOLONE ACETATE 1% OPHTH DROPS 1ML RIGHTEYE SCH ×5 (09:18→20:12)
[2018-09-03 09:25] LABS: BASOPHILS % 0.3 % (0.0-2.0); EOSINOPHILS % 1.4 % (0.0-5.0); HEMATOCRIT. 25.9 % (36.0-48.0); HEMOGLOBIN. 8.1 g/dL (12.0-16.0); LYMPHOCYTES % 17.2 % (20.0-50.0); MEAN CORPUSCULAR HEMOGLOBIN 30.5 pg (28.0-32.0); MEAN CORPUSCULAR VOLUME 97.6 fL (81.0-99.0); MONOCYTES % 8.3 % (2.0-8.0); NEUTROPHILS % 72.8 % (40.0-76.0); PLATELET 99 x1000/uL (130-400); RED BLOOD CELL COUNT 2.65 mill/uL (4.2-5.4)
[2018-09-04] VITALS (11 sets, daily range): BP systolic 113–155; BP diastolic 28–67
[2018-09-04] MEDS: HYDRALAZINE HCL 100MG TABLET PO SCH ×4 (00:11→21:27)
[2018-09-04] MEDS: SILDENAFIL CITRATE 20MG TABLET PO SCH ×4 (00:12→21:27)
[2018-09-04] MEDS: AMLODIPINE 5MG TABLET PO SCH ×3 (00:12→21:27)
[2018-09-04 00:40] LABS: HEMATOCRIT 32.7 % (36.0-48.0); HEMOGLOBIN 10.4 g/dL (12.0-16.0)
[2018-09-04 06:03] LABS: HEMATOCRIT. 27.5 % (36.0-48.0); HEMOGLOBIN. 8.8 g/dL (12.0-16.0); MEAN CORPUSCULAR HEMOGLOBIN 30.3 pg (28.0-32.0); MEAN PLATELET VOLUME 9.5 fl (7.4-10.4); PLATELET 76 x1000/uL (130-400); RED BLOOD CELL COUNT 2.92 mill/uL (4.2-5.4); RED CELL DISTRIBUTION WIDTH 19.3 % (11.6-14.6)
[2018-09-04] MEDS: FOLIC ACID/VITAMIN B COMP W-C TABLET PO SCH (09:00)
[2018-09-04 10:13] LABS: PLATELET ESTIMATE DECREASED
[2018-09-04] MEDS: CALCIUM ACETATE 667MG CAPSULE PO SCH ×3 (10:25→18:58)
[2018-09-04] MEDS: FERROUS SULFATE 325MG TABLET PO SCH ×3 (10:25→18:58)
[2018-09-04] MEDS: PANTOPRAZOLE SODIUM 40 MG/VIAL IV SCH ×2 (10:25→21:27)
[2018-09-04] MEDS: PREDNISOLONE ACETATE 1% OPHTH DROPS 1ML RIGHTEYE SCH ×4 (10:35→21:00)
[2018-09-04] MEDS: DOCUSATE SODIUM 250MG CAPSULE PO SCH (18:58)
[2018-09-04 20:38] LABS: HEMATOCRIT 26.9 % (36.0-48.0); HEMOGLOBIN 8.5 g/dL (12.0-16.0)
[2018-09-05] VITALS (10 sets, daily range): BP systolic 94–155; BP diastolic 39–75
[2018-09-05] MEDS: HYDRALAZINE HCL 100MG TABLET PO SCH ×2 (06:00→13:38)
[2018-09-05] MEDS: SILDENAFIL CITRATE 20MG TABLET PO SCH ×2 (06:00→13:39)
[2018-09-05 07:49] LABS: MEAN CORPUSCULAR HEMOGLOBIN 30.8 pg (28.0-32.0); MEAN CORPUSCULAR VOLUME 95.3 fL (81.0-99.0); MEAN PLATELET VOLUME 9.9 fl (7.4-10.4); PLATELET 83 x1000/uL (130-400); RED BLOOD CELL COUNT 2.93 mill/uL (4.2-5.4); RED CELL DISTRIBUTION WIDTH 19.8 % (11.6-14.6)
[2018-09-05] MEDS: FERROUS SULFATE 325MG TABLET PO SCH ×2 (08:00→13:00)
[2018-09-05] MEDS: CALCIUM ACETATE 667MG CAPSULE PO SCH ×2 (08:00→13:00)
[2018-09-05] MEDS: DOCUSATE SODIUM 250MG CAPSULE PO SCH ×2 (09:00→16:48)
[2018-09-05] MEDS: FOLIC ACID/VITAMIN B COMP W-C TABLET PO SCH (09:00)
[2018-09-05] MEDS: PREDNISOLONE ACETATE 1% OPHTH DROPS 1ML RIGHTEYE SCH (09:00)
[2018-09-05] MEDS: AMLODIPINE 5MG TABLET PO SCH (09:00)
[2018-09-05] MEDS: PANTOPRAZOLE SODIUM 40 MG/VIAL IV SCH (09:21)
[2018-09-05 10:40] LABS: PLATELET ESTIMATE DECREASED
[2018-09-06] MEDS ORDERED: PREDNISOLONE ACETATE 1% OPHTH DROPS 1ML LEFTEYE SCH (09:00)
== END 2018-09-05 18:05 | disposition home or self-care (01) | DRG 377 ==
LOC: ER 13:37 → 6WST 15:54 → EDBEDREQ 15:55 → EDBEDREQTM 15:55 → CANRESERV 16:13 → ENRESERV 16:13 → EDBEDREQ 23:09 → ENRESERV 09-03 00:18 → 5EST 09-03 06:13
PROVIDERS: ADMIT Family Medicine Adult Medicine; ATTEND Family Medicine Adult Medicine
PROC: 30233N1 Transfusion of Nonautologous Red Blood Cells into Peripheral Vein, Percutaneous Approach (ICD-10-PCS; principal; 2018-09-03)
PROC: 5A1D70Z Performance of Urinary Filtration, Intermittent, Less than 6 Hours Per Day (ICD-10-PCS; 2018-09-03)
PROC: 5A1D70Z Performance of Urinary Filtration, Intermittent, Less than 6 Hours Per Day (ICD-10-PCS; 2018-09-05)
DX: K57.31 Diverticulosis of large intestine without perforation or abscess with bleeding (principal); N18.6 End stage renal disease; I13.2 Hypertensive heart and chronic kidney disease with heart failure and with stage 5 chronic kidney disease, or end stage renal disease; K76.6 Portal hypertension; D61.818 Other pancytopenia; K80.80 Other cholelithiasis without obstruction; K74.60 Unspecified cirrhosis of liver; I50.9 Heart failure, unspecified; R00.1 Bradycardia, unspecified; F17.210 Nicotine dependence, cigarettes, uncomplicated; B19.20 Unspecified viral hepatitis C without hepatic coma; R16.1 Splenomegaly, not elsewhere classified; D50.9 Iron deficiency anemia, unspecified; N28.1 Cyst of kidney, acquired; K44.9 Diaphragmatic hernia without obstruction or gangrene; D63.1 Anemia in chronic kidney disease; I25.10 Atherosclerotic heart disease of native coronary artery without angina pectoris; I27.20 Pulmonary hypertension, unspecified; Z82.49 Family history of ischemic heart disease and other diseases of the circulatory system; Z99.2 Dependence on renal dialysis; I25.2 Old myocardial infarction; Z86.010 Personal history of colon polyps; Z79.899 Other long term (current) drug therapy
CPT/HCPCS: 36415; 71045; 74176; 80048; 82270; 83540; 83550; 83735; 83880; 84484; 85014; 85018; 86850; 86900; 86920; 93005; 96374; 96375; 99291; C9113; J1170; J2405; J3010; J3490; J7040; J7050; P9016

== ENCOUNTER 2018-10-06 12:24 | Inpatient (IN) | payer MEDICARE, MEDICAID ==
[~2018-10-06] VITALS: Ht 162.6 cm; Wt 59.9 kg
[2018-10-06 16:41] LABS: HEMATOCRIT. 25.2 % (36.0-48.0); HEMOGLOBIN. 7.7 g/dL (12.0-16.0); MEAN CORPUSCULAR HEMOGLOBIN 29.4 pg (28.0-32.0); MEAN CORPUSCULAR VOLUME 95.7 fL (81.0-99.0); MEAN PLATELET VOLUME 8.8 fl (7.4-10.4); PLATELET 117 x1000/uL (130-400); RED BLOOD CELL COUNT 2.63 mill/uL (4.2-5.4); RED CELL DISTRIBUTION WIDTH 18.7 % (11.6-14.6)
[2018-10-06 16:45] LABS: CHLORIDE 106 mEq/L (98-107)
[2018-10-06 16:48] LABS: INR 1.1; PARTIAL THROMBOPLASTIN TIME 25.1 sec (23.4-31.0); PROTHROMBIN TIME 10.6 sec (9.1-11.1)
[2018-10-06 17:00] LABS: PLATELET ESTIMATE DECREASED
[2018-10-06 21:35] VITALS: BP 179/83
[2018-10-06 21:40] VITALS: BP 179/83
[2018-10-06] MEDS ORDERED: HYDROCODONE/ACETAMINOPHEN 5/325MG TABLET PO PRN (22:45)
[2018-10-06] MEDS ORDERED: ACETAMINOPHEN 325MG TABLET PO PRN (22:45)
[2018-10-06] MEDS ORDERED: CLONIDINE 0.1MG TABLET PO PRN ×2 (22:45→23:49)
[2018-10-06] MEDS ORDERED: MAGNESIUM/ALUMINUM HYDROXIDE/SIMETHICONE 30ML UDC PO PRN (23:45)
[2018-10-06] MEDS ORDERED: ONDANSETRON HCL 4MG/2ML INJ IV PRN (23:45)
[2018-10-06] MEDS ORDERED: GUAIFENESIN 200MG/10ML SUGAR FREE UDC PO PRN (23:45)
[2018-10-06] MEDS ORDERED: IPRATROPIUM/ALBUTEROL 0.5-3(2.5)MG/3ML NEB INH PRN (23:45)
[2018-10-06] MEDS ORDERED: DOCUSATE SODIUM 100MG CAPSULE PO PRN (23:45)
[2018-10-06] MEDS ORDERED: DIPHENHYDRAMINE 50MG/ML VIAL IV PRN (23:45)
[2018-10-07] VITALS (12 sets, daily range): BP systolic 141–181; BP diastolic 67–97
[2018-10-07 01:35] LABS: HEMATOCRIT 24.6 % (36.0-48.0); HEMOGLOBIN 7.8 g/dL (12.0-16.0)
[2018-10-07] MEDS ORDERED: CLONIDINE 0.1MG TABLET PO PRN (06:00)
[2018-10-07 06:58] LABS: HEMATOCRIT. 23.2 % (36.0-48.0); HEMOGLOBIN. 7.3 g/dL (12.0-16.0); MEAN CORPUSCULAR HEMOGLOBIN 29.9 pg (28.0-32.0); MEAN CORPUSCULAR VOLUME 95.3 fL (81.0-99.0); MEAN PLATELET VOLUME 9.5 fl (7.4-10.4); PLATELET 92 x1000/uL (130-400); RED BLOOD CELL COUNT 2.44 mill/uL (4.2-5.4); RED CELL DISTRIBUTION WIDTH 18.3 % (11.6-14.6)
[2018-10-07 07:12] LABS: CHLORIDE 107 mEq/L (98-107)
[2018-10-07 07:18] LABS: PHOSPHORUS 3.8 mg/dL (2.5-4.9)
[2018-10-07 07:21] LABS: T4 FREE 1.08 ng/dL (0.76-1.46)
[2018-10-07 16:11] LABS: PLATELET ESTIMATE DECREASED
[2018-10-07] MEDS ORDERED: MACI10TA2 MT (17:53)
[2018-10-07] MEDS ORDERED: FENT1PAT3 TP (17:53)
[2018-10-07] MEDS ORDERED: LATA7.5D OP (17:53)
[2018-10-07] MEDS ORDERED: CALC667C MT (17:53)
[2018-10-07] MEDS ORDERED: OMEP20CA10 MT (17:53)
[2018-10-07] MEDS ORDERED: SEVE800T8 MT (17:53)
[2018-10-07] MEDS ORDERED: HYDR100T26 MT (17:53)
[2018-10-07] MEDS: AMLODIPINE 5MG TABLET PO SCH (21:29)
[2018-10-07] MEDS: HYDRALAZINE HCL 25MG TABLET PO SCH (21:29)
[2018-10-08] VITALS (7 sets, daily range): BP systolic 139–176; BP diastolic 61–91
[2018-10-08] MEDS: LORAZEPAM 0.5MG TABLET PO PRN (01:16)
[2018-10-08] MEDS: HYDRALAZINE HCL 25MG TABLET PO SCH ×3 (05:11→23:08)
[2018-10-08] MEDS: LOSARTAN POTASSIUM 25 MG TABLET PO SCH (08:26)
[2018-10-08] MEDS: AMLODIPINE 5MG TABLET PO SCH ×2 (08:26→21:22)
[2018-10-08] MEDS ORDERED: SORBITOL 70% SOLN 30ML PO SCH ×2 (13:30→17:30)
[2018-10-08 13:32] LABS: HEMATOCRIT 25.8 % (36.0-48.0); HEMOGLOBIN 8.3 g/dL (12.0-16.0)
[2018-10-08 14:11] LABS: FERRITIN 393 ng/mL (10-291)
[2018-10-08 14:13] LABS: FOLIC ACID (FOLATE) SERUM >20 ng/mL ng/mL (>5.38)
[2018-10-08 18:11] LABS: HEMATOCRIT. 25.9 % (36.0-48.0); HEMOGLOBIN. 8.2 g/dL (12.0-16.0); MEAN CORPUSCULAR VOLUME 94.3 fL (81.0-99.0); MEAN PLATELET VOLUME 10.3 fl (7.4-10.4); PLATELET 105 x1000/uL (130-400); RED BLOOD CELL COUNT 2.75 mill/uL (4.2-5.4); RED CELL DISTRIBUTION WIDTH 19.9 % (11.6-14.6)
[2018-10-08] MEDS: HYDROCODONE/APAP 7.5/325MG 1 TAB TABLET PO PRN (18:48)
[2018-10-08 19:35] LABS: PLATELET ESTIMATE DECREASED
[2018-10-08] MEDS: PANTOPRAZOLE SODIUM 40 MG/VIAL IV SCH (21:22)
[2018-10-09] VITALS (11 sets, daily range): BP systolic 134–167; BP diastolic 62–98
[2018-10-09] MEDS: LORAZEPAM 0.5MG TABLET PO PRN ×2 (03:55→23:03)
[2018-10-09] MEDS ORDERED: SORBITOL 70% SOLN 30ML PO SCH (06:00)
[2018-10-09] MEDS: HYDRALAZINE HCL 25MG TABLET PO SCH ×3 (06:27→22:00)
[2018-10-09 07:09] LABS: HEMATOCRIT. 24.7 % (36.0-48.0); HEMOGLOBIN. 7.8 g/dL (12.0-16.0); MEAN CORPUSCULAR HEMOGLOBIN 29.9 pg (28.0-32.0); PLATELET 104 x1000/uL (130-400); RED BLOOD CELL COUNT 2.63 mill/uL (4.2-5.4); RED CELL DISTRIBUTION WIDTH 19.2 % (11.6-14.6)
[2018-10-09 08:26] LABS: HIV SCREEN 4G Non Reactive (Non Reactive); IMMUNOGLOBULIN A 257 mg/dL (64-422); IMMUNOGLOBULIN G 2497 mg/dL (700-1600); IMMUNOGLOBULIN M 20 mg/dL (26-217)
[2018-10-09] MEDS: AMLODIPINE 5MG TABLET PO SCH ×2 (09:00→21:00)
[2018-10-09] MEDS ORDERED: ONDANSETRON HCL 4MG/2ML INJ IV PRN ×2 (09:15→14:15)
[2018-10-09] MEDS ORDERED: MEPERIDINE HCL/PF 25MG/ML CPJ IV PRN ×2 (09:15→14:15)
[2018-10-09] MEDS ORDERED: HYDROMORPHONE HCL/PF 2MG/ML CPJ IV PRN ×2 (09:15→14:15)
[2018-10-09] MEDS ORDERED: FENTANYL CITRATE/PF 50MCG/ML 2ML VIAL IV PRN ×2 (09:15→14:15)
[2018-10-09] MEDS ORDERED: MORPHINE SULFATE 4 MG/ML CPJ (NOT FOR IM USE) IV PRN ×2 (09:15→14:15)
[2018-10-09] MEDS ORDERED: PROPOFOL 200MG/20ML VIAL IV ONE ×5 (09:24→15:55)
[2018-10-09] MEDS ORDERED: EPHEDRINE SULFATE 50MG/ML VIAL ONE ×2 (09:25→14:45)
[2018-10-09] MEDS ORDERED: SODIUM CHLORIDE 0.9% 10ML VIAL ONE (09:25)
[2018-10-09] MEDS ORDERED: LIDOCAINE HCL 1% 20ML VIAL (Pyxis) INJ ONE (09:40)
[2018-10-09 11:37] LABS: PLATELET ESTIMATE SLIGHTLY DECREASED
[2018-10-09] MEDS: LOSARTAN POTASSIUM 25 MG TABLET PO SCH (12:14)
[2018-10-09] MEDS: PANTOPRAZOLE SODIUM 40 MG/VIAL IV SCH ×2 (12:15→20:59)
[2018-10-09 13:17] LABS: HEMATOCRIT 24.6 % (36.0-48.0); HEMOGLOBIN 7.7 g/dL (12.0-16.0)
[2018-10-09] MEDS ORDERED: LIDOCAINE HCL 2% 5ML SYRINGE IV ONE (14:46)
[2018-10-09] MEDS ORDERED: SIMETHICONE 40 MG/0.6 ML 30ML ONE (15:02)
[2018-10-09] MEDS ORDERED: PHENYLEPHRINE HCL 10 MG/ML 1ML (IV VIAL) IV ONE (16:01)
[2018-10-09] MEDS: HYDROCODONE/APAP 7.5/325MG 1 TAB TABLET PO PRN (21:02)
[2018-10-10 04:00] VITALS: BP 117/52
[2018-10-10] MEDS: HYDRALAZINE HCL 25MG TABLET PO SCH ×2 (05:25→14:00)
[2018-10-10 07:36] LABS: BASOPHILS % 0.3 % (0.0-2.0); EOSINOPHILS % 1.4 % (0.0-5.0); HEMATOCRIT. 25.9 % (36.0-48.0); HEMOGLOBIN. 8.4 g/dL (12.0-16.0); LYMPHOCYTES % 18.5 % (20.0-50.0); MEAN CORPUSCULAR HEMOGLOBIN 30.6 pg (28.0-32.0); MEAN CORPUSCULAR VOLUME 94.1 fL (81.0-99.0); MEAN PLATELET VOLUME 9.6 fl (7.4-10.4); MONOCYTES % 14.7 % (2.0-8.0); NEUTROPHILS % 65.1 % (40.0-76.0); PLATELET 96 x1000/uL (130-400); RED BLOOD CELL COUNT 2.75 mill/uL (4.2-5.4); RED CELL DISTRIBUTION WIDTH 19.4 % (11.6-14.6)
[2018-10-10] MEDS: LOSARTAN POTASSIUM 25 MG TABLET PO SCH (09:00)
[2018-10-10] MEDS: AMLODIPINE 5MG TABLET PO SCH (09:00)
[2018-10-10] MEDS: PANTOPRAZOLE SODIUM 40 MG/VIAL IV SCH (09:26)
[2018-10-10 11:52] VITALS: BP 123/57
[2018-10-10 12:19] LABS: HEMATOCRIT 25.7 % (36.0-48.0); HEMOGLOBIN 8.2 g/dL (12.0-16.0)
[2018-10-10 14:58] VITALS: BP 123/57
[2018-10-10 15:57] VITALS: BP 116/109
[2018-10-12 10:07] LABS: KAPPA LT CHAINS FREE SERUM 654.2 mg/L (3.3-19.4); KAPPA/LAMBDA RATIO 2.43 (0.26-1.65); LAMBDA LT CHAINS FREE SERUM 269.6 mg/L (5.7-26.3)
== END 2018-10-10 19:11 | disposition home or self-care (01) | DRG 385 ==
LOC: ER 13:40 → 6WST 18:53 → MERGE 18:53 → EDBEDREQ 18:55 → ENRESERV 18:59
PROVIDERS: ADMIT Family Medicine Adult Medicine; ATTEND Family Medicine Adult Medicine
PROC: 30233N1 Transfusion of Nonautologous Red Blood Cells into Peripheral Vein, Percutaneous Approach (ICD-10-PCS; principal; 2018-10-06)
PROC: 5A1D70Z Performance of Urinary Filtration, Intermittent, Less than 6 Hours Per Day (ICD-10-PCS; 2018-10-08)
PROC: 07DQ3ZX Extraction of Sternum Bone Marrow, Percutaneous Approach, Diagnostic (ICD-10-PCS; 2018-10-09)
PROC: 0DB68ZX Excision of Stomach, Via Natural or Artificial Opening Endoscopic, Diagnostic (ICD-10-PCS; 2018-10-09)
PROC: 0DBM8ZZ Excision of Descending Colon, Via Natural or Artificial Opening Endoscopic (ICD-10-PCS; 2018-10-09)
DX: K51.411 Inflammatory polyps of colon with rectal bleeding (principal); K29.71 Gastritis, unspecified, with bleeding; N18.6 End stage renal disease; E43 Unspecified severe protein-calorie malnutrition; D61.818 Other pancytopenia; I13.2 Hypertensive heart and chronic kidney disease with heart failure and with stage 5 chronic kidney disease, or end stage renal disease; I50.32 Chronic diastolic (congestive) heart failure; J98.11 Atelectasis; G93.40 Encephalopathy, unspecified; D50.0 Iron deficiency anemia secondary to blood loss (chronic); E78.5 Hyperlipidemia, unspecified; F17.210 Nicotine dependence, cigarettes, uncomplicated; J44.9 Chronic obstructive pulmonary disease, unspecified; B19.20 Unspecified viral hepatitis C without hepatic coma; K21.9 Gastro-esophageal reflux disease without esophagitis; K44.9 Diaphragmatic hernia without obstruction or gangrene; Z86.010 Personal history of colon polyps; Z99.2 Dependence on renal dialysis; K57.30 Diverticulosis of large intestine without perforation or abscess without bleeding; I25.10 Atherosclerotic heart disease of native coronary artery without angina pectoris; I27.20 Pulmonary hypertension, unspecified; I25.2 Old myocardial infarction; Z82.49 Family history of ischemic heart disease and other diseases of the circulatory system; D46.9 Myelodysplastic syndrome, unspecified; Z68.22 Body mass index [BMI] 22.0-22.9, adult
CPT/HCPCS: 36415; 36430; 38220; 71045; 76705; 80048; 82270; 82728; 82746; 82784; 82962; 83540; 83550; 83735; 83883; 84100; 84439; 84443; 84484; 85014; 85018; 85060; 85097; 86334; 86850; 86900; 86920; 87389; 88305; 88312; 88313; 93005; 99285; C9113; J2370; J2704; J3490; J7040; P9016

== ENCOUNTER 2018-10-25 20:01 | Emergency (ER) | payer MEDICARE, MEDICAID ==
[~2018-10-25] VITALS: Ht 165.1 cm; Wt 61.0 kg
[~2018-10-25 20:01] MED LIST changes: +CALC667C MT; +FENT1PAT3 TP; +HYDR100T26 MT; +LATA7.5D OP; +OMEP20CA10 MT
[2018-10-25] MEDS ORDERED: ASPIRIN 81MG TABLET PO ONE ×2 (20:45→21:30)
[2018-10-25 21:21] LABS: BASOPHILS % 0.2 % (0.0-2.0); EOSINOPHILS % 0.9 % (0.0-5.0); HEMATOCRIT. 23.2 % (36.0-48.0); HEMOGLOBIN. 7.3 g/dL (12.0-16.0); LYMPHOCYTES % 18.5 % (20.0-50.0); MEAN CORPUSCULAR HEMOGLOBIN 32.1 pg (28.0-32.0); MEAN CORPUSCULAR VOLUME 102.1 fL (81.0-99.0); MONOCYTES % 10.6 % (2.0-8.0); NEUTROPHILS % 69.8 % (40.0-76.0); PLATELET 121 x1000/uL (130-400); RED BLOOD CELL COUNT 2.27 mill/uL (4.2-5.4); RED CELL DISTRIBUTION WIDTH 21.2 % (11.6-14.6)
[2018-10-25 21:23] LABS: CHLORIDE 106 mEq/L (98-107)
[2018-10-25 21:32] LABS: INR 1.1; PROTHROMBIN TIME 11.2 sec (9.1-11.1)
[2018-10-25] MEDS ORDERED: EPINEPHRINE 0.1MG/ML (1:10,000) 10ML SYR ONE (22:24)
[2018-10-25 23:01] VITALS: BP 173/65
== END 2018-10-25 23:00 | disposition short-term general hospital (02) ==
LOC: MERGE 20:01 → ER 20:01 → CANBEDREQ 10-26 02:12
DX: I21.3 ST elevation (STEMI) myocardial infarction of unspecified site (principal); I12.0 Hypertensive chronic kidney disease with stage 5 chronic kidney disease or end stage renal disease; N18.6 End stage renal disease; Z99.2 Dependence on renal dialysis
CPT/HCPCS: 36415; 71045; 80053; 83880; 84484; 85025; 85610; 93005; 99291; J3490